=== PATIENT | female | born 1965 | race Caucasian/White ===

== ENCOUNTER 2018-12-14 19:12 | Inpatient (IN) ==
--- OUTSIDE RECORDS SUMMARY | 2018-12-14 19:15 | External Medical Summary | Continuity of Care Document ---
:1965 Author Name Mario Momin, Provider Address Unavailable Unavailable , Care Team Providers Name Role Phone NonMNPG Merrill, Provider Unavailable [email or web address] Unavailable Unavailable Unavailable Unavailable Unavailable Problems Uterine enlargement (621.2) (N85.2) Checking of intrauterine device (V25.42) (Z30.431) Encounter for routine gynecological examination (V72.31) (Z0 1.419) Acute cholecystitis (575.0) (K81.0) Obesity (278.00) (E66.9) Dysmenorrhea (625.3) (N94.6) Depression (311) (F32.9) Allergies and Adverse Reactions No Known Drug Allergies (Allergy) Medications metFORMIN HCl TABS Refills: 0 CeleXA TABS Refills: 0 Synthroid TABS Refills: 0 Procedures History of Neuroplasty Decompression Median Status: Completed Nerve At Carpal Tunnel History of Laparoscopic Cholecystectomy With Status: Completed 23-Jan-2015 0:00 Cholangiography Checking of intrauterine device Immunizations Immunizations not documented Family History Father Family history of Renal Failure Status: Active Sister Family history of Breast Cancer Status: Active Unknown Family Member Family history of Breast Cancer Status: Active Comments : Family History Social History - Smoking Status Unknown if ever smoked Plan of Treatment Planned Observations Planned Goals not documented Results No Known Results Results not documented Encounters Appointment; Jenniffer Mendosa M.D. 14-May-2017 13:00 Encounter Diagnosis: Problem not documented
[2018-12-14] MEDS ORDERED: SODIUM CHLORIDE 0.9% 1000ML 1,000 ML IV ONE (19:35)
[2018-12-14] MEDS ORDERED: MoRPHine SULFATE 4 MG/ML 1 ML CARP\\VIAL IV STA ×2 (19:35→21:05)
[2018-12-14] MEDS ORDERED: ONDANSETRON INJ 2 MG/ML 2 ML VIAL IV STA (19:35)
[2018-12-14 19:46] LABS: Mean Corpuscular Hgb Conc 35.5 g/dL (32-36); Mean Corpuscular Volume 90.1 fL (80-100); Mean Platelet Volume 9.7 fL (7.4-10.4); Platelet Count 186 K/uL (130-400); RDW Coefficient of Variation 16.5 % (11.5-14.5); RDW Standard Deviation 53.1 fL (36.4-46.3); Red Blood Count 3.44 M/uL (4.2-5.4); White Blood Count 6.93 K/uL (4.8-10.8)
--- NOTE | 2018-12-14 19:51 | XRay Report ---
SINGLE VIEW CHEST CLINICAL HISTORY: Atypical chest pain. Dyspnea. FINDINGS: An AP, portable, upright chest radiograph is compared to study dated 01/22/2015. Patchy degr aded The cardiomediastinal silhouette is unremarkable. There is bibasilar atelectasis. No airspace co nsolidation or large pleural effusion is identified. Calcified granulomas are seen in the right upper lobe. No pneumothorax is seen. The bony thorax is grossly intact. IMPRESSION: No active disease in the chest. Electronically signed by: Carl Whitten M.D. 12/14/2018 7:50 PM
[2018-12-14 20:02] LABS: BUN Creatinine Ratio 9.9 (10-20); Calcium 9.5 mg/dl (8.5-10.1); Creatinine Clr Calc Pharmacy 53.4 ml/min; Est GFR (African American) 52.3; Est GFR (Non-African American) 45.1; Potassium 4.1 mmol/L (3.5-5.1)
[2018-12-14 20:05] LABS: Appearance Urine Clear (Clear); Bilirubin Urine Negative (Negative); Bilirubin,Total 0.7 mg/dl (0.2-1); Blood Urine Negative (Negative); Color Urine Yellow; Glucose Urine UA Negative (Negative); Ketones Urine Negative (Negative); Leukocyte Esterase Urine Negative (Negative); Nitrite Urine Negative (Negative); Protein Urine Negative (Negative); Specific Gravity Urine 1.017 (1.000-1.030); Urobilinogen Urine Negative (Negative); pH Urine 5.5 (4.5-7.5)
[2018-12-14 20:12] LABS: ALC (manual) 2.89 K/uL (1.2-3.4); Eosinophils # (manual) 0.12 K/uL (0-0.5); Eosinophils % (manual) 1.7 %; Lymphocytes # (manual) 1.68 K/uL (1.2-3.4); Lymphocytes % (manual) 24.3 %; Monocytes # (manual) 0.24 K/uL (0.11-0.59); Monocytes % (manual) 3.5 %; Neutrophils % (manual) 53.1 %; Ovalocytes 1+; Reactive Lymphocytes # (manual) 1.21 K/uL
--- NOTE | 2018-12-14 20:32 | CT Scan Report ---
CT SCAN OF THE ABDOMEN AND PELVIS WITHOUT IV CONTRAST CLINICAL HISTORY: Left-sided abdominal pain. COMPARISON STUDY: Abdominal CT dated 10/27/2017. TECHNIQUE: CT scan of the abdomen and pelvis is performed from the lung bases to the proximal femora. Images are reviewed in the axial, sagittal, and coronal planes. IV contrast was not administered for this examination. Note that the examination was performed in suboptimal fashion without oral and IV contrast. A dose lowering technique was utilized adhering to the principles of ALARA. CT DOSE: 981.71 mGy.cm FINDINGS: Lung bases: The heart is normal in size and without pericardial effusion. A calcified granuloma seen at the medial right lung base. The lung bases are otherwise clear noting dependent atelectasis. Liver: The unenhanced liver is markedly enlarged measuring 27 cm in length. The liver demonstrates di ffusely diminished attenuation consistent with severe hepatic steatosis. There is no intrahepatic sravani iary ductal dilatation. Gallbladder: Surgically absent noting clips in the gallbladder fossa. Spleen: The spleen is markedly enlarged measuring 19.5 cm in length. There is a 3.1 cm subcapsular fo cus in the inferior spleen (axial image #146) with trace perisplenic fluid is level. This may represe nt a small splenic infarct. Pancreas: The unenhanced pancreas is grossly unremarkable. Adrenal glands: Unremarkable. Kidneys: The unenhanced kidneys are normal in size and without hydronephrosis. A 2.2 cm calcification is again seen within the left kidney. No right renal calculi are identified. There is no evidence of contour deforming renal mass lesion. Abdominal vasculature: The abdominal aorta is normal in course and caliber. Bowel: There is no bowel obstruction. The appendix is well-visualized and normal. Peritoneum: There is no intraperitoneal free air or abdominal ascites. There is a fat-containing umbi lical hernia. Lymphadenopathy: None. Pelvic viscera: The bladder is partially decompressed and grossly unremarkable. The uterus is normal as imaged noting an intrauterine device in place. The left ovary is enlarged measuring 5.3 cm in jane th and contains several internal cystic foci. Skeletal structures: No lytic or blastic lesions are seen. Mild sclerotic change is noted in the sacr oiliac joints. IMPRESSION: 1. The spleen is markedly enlarged measuring up to 19.5 cm in length. This has significantly increase d in size from 10/27/2017. Consider nonemergent hematology/oncology follow-up. 2. There is a 3.1 cm wedge-shaped focus of subcapsular low-attenuation within the inferior spleen. Th ere is trace perisplenic fluid at this level and this likely represents a small splenic infarct. 3. Marked hepatomegaly and severe hepatic steatosis. 4. A 2.2 cm calcification is again seen in the left kidney. 5. The left ovary is abnormally enlarged with several small cystic foci. Nonemergent gynecology follo w-up as well as nonemergent pelvic ultrasound are recommended for further assessment. 6. Additional findings as above. Electronically signed by: Carl Whitten M.D. 12/14/2018 8:31 PM
--- NOTE | 2018-12-14 22:47 | History & Physical Report ---
Date of Service December 14, 2018 Assessment & Plan (1) Left sided abdominal pain: 53-year-old female was admitted on 14 December 2018 for left flank pain and splenomegaly. Left flank pain, splenomegaly, lung granulomas on CXR: Worsening perhaps over two months. Denies known history of similar symptoms. No obvious evidence of ongoing infectious issue (with questionable recent CAP). No known cardiac anatomic disease. No recent reported trauma. May have some underlying liver disease. - In ED, afebrile, not tachycardic, relatively normal BP, normal room SpO2. WBC 7. POC lactate 2.8. UA negative. [place] screen negative. pCXR without active disease but positive calcified granulomas present. EKG is NSR 79. CT a/p non- con noted splenomegaly with increased size since October 2017. Concern for a small splenic infarct as well. - In ED, treated with morphine, normal saline, and Zofran. - For overnight, ordered a limited ultrasound for further evaluation of her spleen to include Dopplers of her splenic artery and vein. Will check an INR, CBC, CMP, lipase, and repeat lactate in the morning. - Consider further lab workup to include COMPA-I level for sarcoidosis, HAYES causes, hypercoagulability causes, and possible GI and/or heme onc consultation. Transaminitis, elevated lipase: Admit AST 91, ALT 106, alk phos 127, lipase 400. CT a/p notes marked hepatomegaly and severe hepatic steatosis. May all be HAYES-related given her comorbidities, though it is unclear if this is ever been evaluated before. Anemia: Admit hemoglobin 11.0. Only comparison is October 2017 at 12.8. May be related to splenic sequestration. No present obvious evidence of bleeding. Elevated creatinine: Admit creatinine 1.34. BUN 13. - Will provide some IVF and recheck in a.m. Temporarily hold her anti-HTN meds. Incidental CT a/p findings: - Left kidney 2.2 cm calcification. - Left ovary enlargement with several small cystic foci. --- Would benefit from gynecology follow-up. Ongoing medical issues: - Hypertension: Held her home triamterenehydrochlorothiazide and lisinopril for elevated creatinine. - Diabetes: Admit glucose 245. Unknown recent A1c. At home is on metformin and atorvastatin. --- Ordered HbA1c. Will keep on insulin sliding scale. Continue atorvastatin. - Hypothyroidism: Continue home levothyroxine. - Anxiety/depression: Continue home citalopram. Code status: Full code. Diet: DM2. DVT prophy: Heparin. PT/OT: Deferred. Disbo: Admit to MedSurg. (2) Splenomegaly: (3) Lung granuloma: (4) Transaminitis: (5) Elevated lipase: (6) Anemia: (7) Elevated serum creatinine: (8) Kidney calculus: (9) Left ovarian cyst: (10) Hypertension: (11) Diabetes: (12) Hypothyroidism: (13) Anxiety: (14) Depression: History of Present Illness Primary Care Provider: Gregory Sargent 53-year-old female states that she has had left upper quadrant regional pain for about two months now. No known acute injury, infection, or particular source around that time. She denies any previous history of the same. She says over this time it is been progressively worsening such that it feels like there is a "hard ball in there". She ended up going to an urgent care about a week ago, apparently was diagnosed with pneumonia, and was placed on azithromycin [of note, the ED records states that she was given Keflex. On further discussion, it seems much more likely it was a azithromycin based on the dosing she was taking]. She does note that she has had during that time a bit of a dry cough but no known fevers. She has noted occasional nausea without any vomiting. She did develop some loose non-bloody stools after starting the antibiotic, something she says happens to her frequently. She also notes increased fatigue during the past couple of weeks. At present, she denies any chest pain, shortness of breath, abdominal pain outside of a focal area in her high left upper quadrant, focal weakness, or other acute concerns. - Past medical history includes hypertension, diabetes, hypothyroidism, anxiety, depression. - Past surgical history includes cholecystectomy and carpal tunnel release. - Social history includes denying tobacco and alcohol use. Lives at home with family. Lives in an [facility]. Allergies Allergy/AdvReac Type Severity Reaction Status Date / Time No Known Allergies Allergy Verified 12/14/18 21:32 Home Medications Home Medications Medication Instructions Recorded Confirmed Type atorvastatin 10 mg PO DAILY 12/14/18 12/14/18 History cephalexin 500 mg PO QID 12/14/18 12/14/18 History citalopram 40 mg PO DAILY 12/14/18 12/14/18 History levothyroxine 112 mcg PO QAM 12/14/18 12/14/18 History lisinopril 5 mg PO DAILY 12/14/18 12/14/18 History metformin 1,000 mg PO QAM 12/14/18 12/14/18 History triamterene-hydrochlorothiazid 1 tab PO DAILY 12/14/18 12/14/18 History Past Med/Surg History Surgical History History of cholecystectomy Social History Preferred Language: Cymraes Communication Ability: Effective Senior Instructional Designer Required: No Beliefs That Will Affect Care: None Current Living Situation: Spouse and Family Other Information That Helps Us Care for You: No Feels Safe at Home: Yes Safety Concerns: Feels Safe At This Time Smoking Status: Never smoker Do You Dip or Chew Tobacco: No ; Second Hand Expos ure: No ; Tobacco Cessation Education Requested by Patient: No Hx Alcohol Use: Yes Alcohol type: wine Hx Substance Use: No Review of Systems Review of Systems: Constitutional: Denies fevers and focal weakness. Positive occasional chills and generalized fatigue. Eyes: Denies any visual loss or diplopia ENT: Denies any ear/nose/throat pain or difficulty speaking or swallowing Respiratory: Positive cough. Denies dyspnea. Cardiovascular: Denies any chest pain or feeling of edema Gastrointestinal: Positive focal left upper quadrant abdominal pain. Occasional nausea, denies vomiting, positive loose stools. Musculoskeletal: Denies any acute extremity pains, myalgias, or focal weakness Skin: Denies any known acute rashes or lesions Neuro: Denies any headache, acute focal weakness or numbness, or difficulties with speech or swallow. Hematologic: Denies any easy bleeding or bruising Physical Exam Physical Exam: GENERAL: Awake, alert, well-appearing, in no acute distress HENT: Normocephalic, atraumatic. Oropharynx unremarkable. EYES: Normal conjunctiva. Sclera non-icteric. NECK: Inspection normal. Supple and full ROM. No nuchal rigidity. CARDIAC: +S1S2 RRR, no murmurs. RESPIRATORY: Clear to auscultation. No wheezes or rales. Normal respiratory e ffort. GI: +BS, soft, non-distended. Positive focal tenderness to palpation in the high lateral left upper quadrant extending to around the axillary line. No rebound or guarding throughout the remainder of the abdomen. EXTREMITIES: No pedal edema or calf tenderness. Moving all extremities naturally and easily. There are some brown oval macules on the arms and chest. NEURO: No gross neuro deficits. Results & Data Vital Signs (Past 12 Hours) Vital Signs Temp Pulse Pulse Resp BP BP Pulse Ox 12/14/18 20:49 75 16 133/71 97 12/14/18 19:23 37.0 C 98 H 24 119/71 99 Laboratory Results 12/14/18 12/14/18 12/14/18 Range/Units 20:00 19:34 19:34 WBC (4.8-10.8) K/uL RBC (4.2-5.4) M/uL Hgb (12.0-16.0) g/dL Hct (37-47) % MCV (80-100) fL MCH (25-34) pg MCHC (32-36) g/dL RDW Std Deviation (36.4-46.3) fL RDW Coeff of Imelda (11.5-14.5) % Plt Count (130-400) K/uL MPV (7.4-10.4) fL Neutrophils % (Manual) % Lymphocytes % (Manual) % Reactive Lymphs % (Man) % Monocytes % (Manual) % Eosinophils % (Manual) % Neutrophils # (Manual) (1.4-6.5) K/uL Total Absolute Neuts (1.4-6.5) K/uL Lymphocytes # (Manual) (1.2-3.4) K/uL Reactive Lymphs # K/uL Total Abs Lymphocytes (1.2-3.4) K/uL Monocytes # (Manual) (0.11-0.59) K/uL Eosinophils # (Manual) (0-0.5) K/uL Ovalocytes Sodium (136-145) mmol/L Potassium (3.5-5.1) mmol/L Chloride (98-107) mmol/L Carbon Dioxide (21-32) mmol/L Anion Gap (3-11) BUN (7-18) mg/dl Creatinine (0.6-1.2) mg/dl Est Cr Clr Drug Dosing ml/min Est GFR ( Amer) Est GFR (Non-Af Amer) BUN/Creatinine Ratio (10-20) Glucose (70-99) mg/dl POC Lactic Acid Mike 2.79 H (0.90-1.70) mmol/L Calcium (8.5-10.1) mg/dl Total Bilirubin (0.2-1) mg/dl AST (15-37) U/L ALT (12-78) U/L Alkaline Phosphatase (45-117) U/L Total Protein (6.4-8.2) gm/dl Albumin (3.4-5.0) gm/dl Globulin (2.5-4.0) gm/dl Albumin/Globulin Ratio (0.9-2) Lipase (73-393) U/L Urine Color Yellow Urine Appearance Clear (Clear) Urine pH 5.5 (4.5-7.5) Ur Specific [place] 1.017 (1.000-1.030) Urine Protein Negative (Negative) Urine Glucose (UA) Negative (Negative) Urine Ketones Negative (Negative) Urine Blood Negative (Negative) Urine Nitrite Negative (Negative) Urine Bilirubin Negative (Negative) Urine Urobilinogen Negative (Negative) Ur Leukocyte Esterase Negative (Negative) Monoscreen Negative (Negative) 12/14/18 12/14/18 Range/Units 19:34 19:34 WBC 6.93 (4.8-10.8) K/uL RBC 3.44 L (4.2-5.4) M/uL Hgb 11.0 L (12.0-16.0) g/dL Hct 31.0 L (37-47) % MCV 90.1 (80-100) fL MCH 32.0 (25-34) pg MCHC 35.5 (32-36) g/dL RDW Std Deviation 53.1 H (36.4-46.3) fL RDW Coeff of Imelda 16.5 H (11.5-14.5) % Plt Count 186 (130-400) K/uL MPV 9.7 (7.4-10.4) fL Neutrophils % (Manual) 53.1 % Lymphocytes % (Manual) 24.3 % Reactive Lymphs % (Man) 17.4 % Monocytes % (Manual) 3.5 % Eosinophils % (Manual) 1.7 % Neutrophils # (Manual) 3.68 (1.4-6.5) K/uL Total Absolute Neuts 3.68 (1.4-6.5) K/uL Lymphocytes # (Manual) 1.68 (1.2-3.4) K/uL Reactive Lymphs # 1.21 K/uL Total Abs Lymphocytes 2.89 (1.2-3.4) K/uL Monocytes # (Manual) 0.24 (0.11-0.59) K/uL Eosinophils # (Manual) 0.12 (0-0.5) K/uL Ovalocytes 1+ Sodium 134 L (136-145) mmol/L Potassium 4.1 (3.5-5.1) mmol/L Chloride 99 (98-107) mmol/L Carbon Dioxide 24 (21-32) mmol/L Anion Gap 10.0 (3-11) BUN 13 (7-18) mg/dl Creatinine 1.34 H (0.6-1.2) mg/dl Est Cr Clr Drug Dosing 53.4 ml/min Est GFR ( Amer) 52.3 Est GFR (Non-Af Amer) 45.1 BUN/Creatinine Ratio 9.9 L (10-20) Glucose 245 H (70-99) mg/dl POC Lactic Acid Mike (0.90-1.70) mmol/L Calcium 9.5 (8.5-10.1) mg/dl Total Bilirubin 0.7 (0.2-1) mg/dl AST 91 H (15-37) U/L ALT 106 H (12-78) U/L Alkaline Phosphatase 127 H (45-117) U/L Total Protein 8.0 (6.4-8.2) gm/dl Albumin 4.0 (3.4-5.0) gm/dl Globulin 4.0 (2.5-4.0) gm/dl Albumin/Globulin Ratio 1.0 (0.9-2) Lipase 400 H (73-393) U/L Urine Color Urine Appearance (Clear) Urine pH (4.5-7.5) Ur Specific [place] (1.000-1.030) Urine Protein (Negative) Urine Glucose (UA) (Negative) Urine Ketones (Negative) Urine Blood (Negative) Urine Nitrite (Negative) Urine Bilirubin (Negative) Urine Urobilinogen (Negative) Ur Leukocyte Esterase (Negative) Monoscreen (Negative) Medications Administered Discontinued Medications Sodium Chloride (Nss 1000ml) 1,000 mls @ 999 mls/hr IV .Q1H1M ONE Stop: 12/14/18 20:35 Last Infusion: 12/14/18 20:46 Dose: 0 mls/hr Documented by: [id number] Admin: 12/14/18 19:43 Dose: 999 mls/hr Documented by: [id number] Morphine Sulfate (Morphine Sulfate) 4 mg IV NOW STA Stop: 12/14/18 19:36 Last Admin: 12/14/18 19:43 Dose: 4 mg Documented by: [id number] Morphine Sulfate (Morphine Sulfate) 4 mg IV NOW STA Stop: 12/14/18 21:06 Last Admin: 12/14/18 21:09 Dose: 4 mg Documented by: [id number] Ondansetron HCl (Zofran) 4 mg IV NOW STA Stop: 12/14/18 19:36 Last Admin: 12/14/18 19:43 Dose: 4 mg Documented by: [id number] Code Status & VTE Plan Code Status Full code VTE Prophylaxis Plan VTE Prophylaxis will be ordered: Yes Supervising Physician Co-Signing Physician Notes Patient seen and examined, chart reviewed, case discussed with Dr. Li and I agree with his assessment and plan as documented above. Briefly, patient is a 53yo C female with history of DM, HTN, Hypothyroidism presenting with left sided abdominal pain. Patient found to have splenomegaly on CT On exam she is afebrile, hemodynamically stable Mild distress secondary to abdominal discomfort HEENT - anicteric, no jaundice, MMM, neck supple, PERRL Heart - +S2/S2, regular, no m/r/g Lungs - CTA Abd - +BS, soft, tender in LUQ, palpable spleen tip, tender Ext - No edema Neuro - grossly nonfocal Labs and images reviewed. Significant for normochromic/normocytic anemia with Hg of 11, Hct of 31, Ty=133, Cr=1.34, Ede=321, POC lactate = 2.79, mildly elevated AST/ALT and AP. Normal Bili. Mxmvvs=702. UA negative. [place] negative. CXR with calcified granulomas in RUL otherwise unremarkable CT of the abdomen with markedly enlarged spleen, possible splenic infarct, hepatomegaly with severe hepatic steatosis, calcification in left kidney, enlar ged left ovary with several small cystic foci Assessment/Plan: 53yo C female with HTN/DM/Hypothyroidism presenting with severe LUQ pain. Patient found to have hepatosplenomegaly. Other findings in clude lung granuloma and cystic left ovary. Ddx of hepatosplenomegaly is broad - infectious etiology such as histoplasmosis, malignancy, infiltrative such as sarcoidosis, blood dyscrasias, congestive. Patient does not endorse fevers/chills/sweats or weight loss. -Will admit to medical floor. -Pain control and anti-emetics as needed -Check splenic US with doppler to assess blood flow -Check INR -Will check peripheral smear and CA125, consider additional workup to include COMPA level Heme/Onc evaluation -Remainder of plan as above PG Care Time/CCT Total # of Minutes Spent Total Time Spent with Patient: Total time spent is greater than 50% in coordination of care (as documented) at patient's floor/unit and/or counseling patient: Resident Activity Tracking Resident Involvement: Resident Care Provided Care Provided: Adult Hospital Medicine
--- NOTE | 2018-12-14 23:00 | Ultrasound Report ---
ULTRASOUND LEFT UPPER QUADRANT ABDOMEN CLINICAL HISTORY: Splenomegaly. COMPARISON STUDY: Abdominal CT dated 12/14/2018. FINDINGS: Real-time, grayscale, and color Doppler sonography of the left upper quadrant is performed. Images are viewed the transverse and longitudinal planes. FINDINGS: Spleen: The spleen is markedly enlarged, measuring 18.6 cm in length. The splenic vessels at the sple jimenez hilum appear patent. Trace perisplenic fluid is noted. The small splenic infarct seen by CT was n ot apparent by ultrasound. Left kidney: The left kidney is normal in size and homogeneous in echotexture. There is no evidence o f hydronephrosis. A 2.2 cm shadowing calculus is identified in the interpolar region. IMPRESSION: 1. The spleen is markedly enlarged and there is trace perisplenic fluid. The small splenic infarct se en by CT is not visualized by ultrasound. 2. A large shadowing calculus is again seen in the left kidney. Electronically signed by: Carl Whitten M.D. 12/14/2018 10:59 PM
[2018-12-15] MEDS ORDERED: CARBOHYDRATES FOR HYPOGLYCEMIA PO PRN (00:15)
[2018-12-15] MEDS ORDERED: GLUCAGON FOR INJ 1 MG VIAL SQ PRN (00:15)
[2018-12-15] MEDS ORDERED: GLUCOSE 10 TABS/TUBE PO PRN (00:15)
[2018-12-15] MEDS ORDERED: ONDANSETRON INJ 2 MG/ML 2 ML VIAL IV PRN (00:15)
[2018-12-15] MEDS ORDERED: GLUCOSE 40% GEL 15 GM TUBE PO PRN (00:15)
[2018-12-15] MEDS ORDERED: DEXTROSE 50% 50 ML SYRINGE IV PRN (00:15)
[2018-12-15] MEDS ORDERED: MoRPHine SULFATE 4 MG/ML 1 ML CARP\\VIAL IV PRN (00:15)
[2018-12-15] MEDS ORDERED: MoRPHine SULFATE 4 MG/ML 1 ML CARP\\VIAL ONE (00:26)
[2018-12-15] MEDS: LACTATED RINGER'S 1,000 ML IV SCH ×2 (01:32→13:37)
[2018-12-15] MEDS: MoRPHine SULFATE 4 MG/ML 1 ML CARP\\VIAL IV PRN ×6 (03:49→21:59)
[2018-12-15] MEDS: INSULIN ASPART 100 UNITS/ML 3 ML PEN SC SCH ×5 (04:19→20:58)
--- NOTE | 2018-12-15 04:36 | Emergency Department Note ---
Entered by Ronald Mendosa acting as a scribe for History of Present Illness General Chief complaint: Flank Pain Stated complaint: LEFT SIDE PAIN Time Seen by Provider: 12/14/18 19:26 Source: patient Limitations: no limitations History of Present Illness Onset (ago): week(s) 2 Location: left (left-sided abdominal pain) Pain Consistency: + other (worsening) Maximum Pain Intensity: 10 Quality: + constant and + other (pressure) Associated symptoms: + nausea/vomiting (no vomiting); no fever/chills Treatments prior to arrival: other (cephalexin) The patient is a 53 year old female who presents to the Emergency Room with complaints of constant and worsening left-sided flank pain starting 3 weeks ago. The patient states she has not felt good for 2 weeks. The patient's states the patient was in urgent care last week and was diagnosed with pneumonia. The states she was put on cephalexin and the patient has been taking it for the past week. The patient states she has been having diarrhea since starting the antibiotic. The patient states the flank pain feels like pressure. She notes she has been coughing but has not been bringing up any spu suha. She notes coughing causes her back to hurt. She states her flank pain has been much worse today. She notes she is SOB right now and has nausea. She states she feels more bloated. She denies fevers, chills, vomiting, and changes in her urine. She notes she had a cholecystectomy. No prior hx of GI problems. No hx of kidney stones. Home Medications Home Medications Medication Instructions Recorded Confirmed Type atorvastatin 10 mg PO DAILY 12/14/18 12/14/18 History cephalexin 500 mg PO QID 12/14/18 12/14/18 History citalopram 40 mg PO DAILY 12/14/18 12/14/18 History levothyroxine 112 mcg PO QAM 12/14/18 12/14/18 History lisinopril 5 mg PO DAILY 12/14/18 12/14/18 History metformin 1,000 mg PO QAM 12/14/18 12/14/18 History triamterene-hydrochlorothiazid 1 tab PO DAILY 12/14/18 12/14/18 History Allergies Allergy/AdvReac Type Severity Reaction Status Date / Time No Known Allergies Allergy Verified 12/14/18 21:32 Past Med/Surg History Surgical History History of cholecystectomy Social History Preferred Language: Mongolian Communication Ability: Effective [employer] Required: No Beliefs That Will Affect Care: None Current Living Situation: Spouse and Family Other Information That Helps Us Care for You: No Feels Safe at Home: Yes Safety Concerns: Feels Safe At This Time Smoking Status: Never smoker Do You Dip or Chew Tobacco: No ; Second Hand Exposure: No ; Tobacco Cessation Education Requested by Patient: No Hx Alcohol Use: Yes Alcohol type: wine Hx Substance Use: No Review of Systems See HPI for pertinent positives & negatives. and A total of 10 systems reviewed and were otherwise negative Physical Exam Vital Signs Vital Signs - 24 hr 12/14/18 19:23 12/14/18 20:49 Temperature 37.0 C Temperature Source Oral Sepsis Recent Fever Within 48 Hours No Sepsis New/Unexplained Change in Mental Status No Sepsis Action Taken by Nursing No Action Required Pulse Rate 98 H Pulse Rate [Right] 75 Pulse Rhythm [Right] Regular Pulse Strength [Right] Normal Respiratory Rate 24 16 Respiratory Effort / Characteristics Non-Labored Spontaneous Respiratory Depth Normal Blood Pressure 119/71 Blood Pressure [Right Arm] 133/71 Blood Pressure Mean 87 Blood Pressure Mean [Right Arm] 91 Blood Pressure Position [Right Arm] Lying Pulse Oximetry 99 97 Oxygen Delivery Method Room Air GENERAL: alert, uncomfortable appearing, well nourished, moderate distress, non- toxic EYE EXAM: normal conjunctiva, PERRL and EOM's grossly intact OROPHARYNX: no exudate, no erythema, lips, buccal mucosa, and tongue normal and mucous membranes are dry NECK: supple, no nuchal rigidity, no adenopathy, non-tender LUNGS: Clear to auscultation. Normal chest wall mechanics, no w/r/r HEART: no murmurs, S1 normal and S2 normal ABDOMEN: abdomen soft, normo-active bowel sounds, no masses, no rebound or guarding. LUQ tenderness. Left mid abdominal tenderness. BACK: Back is symmetrical on inspection and there is no deformity, no midline tenderness, no CVA tenderness. SKIN: no rashes and no bruising UPPER EXTREMITIES: upper extremities are grossly normal. FROM, nml pulses b/l. LOWER EXTREMITIES: No pitting edema. FROM, nml pulses b/l. NEURO EXAM: Normal sensorium, cranial nerves II-XII grossly intact, normal speech, no gross weakness of arms, no gross weakness of legs. Course 1929: The patient was evaluated in room C11B, and a complete history and physical examination were performed. 2049: I reevaluated the patient. She states she still has pain and is willing to stay. 2102: I discussed the patient's case with [facility] She will evaluate the patient for further management. Administered Medications Lactated Ringer's (Lr) 1,000 mls @ 80 mls/hr IV .[id number] JADON Stop: 01/14/19 00:14 Last Admin: 12/15/18 01:32 Dose: 80 mls/hr Documented by: [id number] Insulin Aspart (Novolog Flexpen) 0 units SC ACHS JADON Stop: 01/14/19 02:59 Last Admin: 12/15/18 04:19 Dose: 3 units Documented by: [id number] Cosigned by: [id number] Morphine Sulfate (Morphine Sulfate) 4 mg IV Q3H PRN PRN Reason: Pain Stop: 12/29/18 00:14 Last Admin: 12/15/18 03:49 Dose: 4 mg Documented by: [id number] Discontinued Medications Sodium Chloride (Nss 1000ml) 1,000 mls @ 999 mls/hr IV .Q1H1M ONE Stop: 12/14/18 20:35 Last Infusion: 12/14/18 20:46 Dose: 0 mls/hr Documented by: [id number] Admin: 12/14/18 19:43 Dose: 999 mls/hr Documented by: [id number] Morphine Sulfate (Morphine Sulfate) 4 mg IV NOW STA Stop: 12/14/18 19:36 Last Admin: 12/14/18 19:43 Dose: 4 mg Documented by: [id number] Morphine Sulfate (Morphine Sulfate) 4 mg IV NOW STA Stop: 12/14/18 21:06 Last Admin: 12/14/18 21:09 Dose: 4 mg Documented by: [id number] Morphine Sulfate (Morphine Sulfate) Confirm Administered Dose 4 mg .ROUTE .STK-MED ONE Stop: 12/15/18 00:27 Last Admin: 12/15/18 00:29 Dose: 4 mg Documented by: [id number] Ondansetron HCl (Zofran) 4 mg IV NOW STA Stop: 12/14/18 19:36 Last Admin: 12/14/18 19:43 Dose: 4 mg Documented by: [id number] Medical Decision Making Differential Diagnosis Differential diagnoses includes but is not limited to gastritis, peptic ulcer disease, GERD, gallbladder disease, pancreatitis, small bowel obstruction, acute coronary syndrome, pericarditis, ischemic bowel, irritable bowel disease, irritable bowel syndrome, appendicitis, diverticulitis, malignancy, hernia, urinary tract infection, torsion, perforation, trauma, infectious. Medical Records Attestation: I reviewed the patient's medical records. Home Medications Current Medication List: was personally reviewed by me Laboratory Data Attestation: I reviewed the patient's lab results. Result diagrams: 12/14/18 19:34 12/14/18 19:34 Lab Results 12/14/18 12/14/18 12/14/18 Range/Units 19:34 19:34 19:34 WBC 6.93 (4.8-10.8) K/uL RBC 3.44 L (4.2-5.4) M/uL Hgb 11.0 L (12.0-16.0) g/dL Hct 31.0 L (37-47) % MCV 90.1 (80-100) fL MCH 32.0 (25-34) pg MCHC 35.5 (32-36) g/dL RDW Std Deviation 53.1 H (36.4-46.3) fL RDW Coeff of Imelda 16.5 H (11.5-14.5) % Plt Count 186 (130-400) K/uL MPV 9.7 (7.4-10.4) fL Neutrophils % (Manual) 53.1 % Lymphocytes % (Manual) 24.3 % Reactive Lymphs % (Man) 17.4 % Monocytes % (Manual) 3.5 % Eosinophils % (Manual) 1.7 % Neutrophils # (Manual) 3.68 (1.4-6.5) K/uL Total Absolute Neuts 3.68 (1.4-6.5) K/uL Lymphocytes # (Manual) 1.68 (1.2-3.4) K/uL Reactive Lymphs # 1.21 K/uL Total Abs Lymphocytes 2.89 (1.2-3.4) K/uL Monocytes # (Manual) 0.24 (0.11-0.59) K/uL Eosinophils # (Manual) 0.12 (0-0.5) K/uL Ovalocytes 1+ Sodium 134 L (136-145) mmol/L Potassium 4.1 (3.5-5.1) mmol/L Chloride 99 (98-107) mmol/L Carbon Dioxide 24 (21-32) mmol/L Anion Gap 10.0 (3-11) BUN 13 (7-18) mg/dl Creatinine 1.34 H (0.6-1.2) mg/dl Est Cr Clr Drug Dosing 53.4 ml/min Est GFR ( Amer) 52.3 Est GFR (Non-Af Amer) 45.1 BUN/Creatinine Ratio 9.9 L (10-20) Glucose 245 H (70-99) mg/dl POC Lactic Acid Mike (0.90-1.70) mmol/L Calcium 9.5 (8.5-10.1) mg/dl Total Bilirubin 0.7 (0.2-1) mg/dl AST 91 H (15-37) U/L ALT 106 H (12-78) U/L Alkaline Phosphatase 127 H (45-117) U/L Total Protein 8.0 (6.4-8.2) gm/dl Albumin 4.0 (3.4-5.0) gm/dl Globulin 4.0 (2.5-4.0) gm/dl Albumin/Globulin Ratio 1.0 (0.9-2) Lipase 400 H (73-393) U/L Urine Color Yellow Urine Appearance Clear (Clear) Urine pH 5.5 (4.5-7.5) Ur Specific Clarence 1.017 (1.000-1.030) Urine Protein Negative (Negative) Urine Glucose (UA) Negative (Negative) Urine Ketones Negative (Negative) Urine Blood Negative (Negative) Urine Nitrite Negative (Negative) Urine Bilirubin Negative (Negative) Urine Urobilinogen Negative (Negative) Ur Leukocyte Esterase Negative (Negative) Monoscreen (Negative) 12/14/18 12/14/18 Range/Units 19:34 20:00 WBC (4.8-10.8) K/uL RBC (4.2-5.4) M/uL Hgb (12.0-16.0) g/dL Hct (37-47) % MCV (80-100) fL MCH (25-34) pg MCHC (32-36) g/dL RDW Std Deviation (36.4-46.3) fL RDW Coeff of Imelda (11.5-14.5) % Plt Count (130-400) K/uL MPV (7.4-10.4) fL Neutrophils % (Manual) % Lymphocytes % (Manual) % Reactive Lymphs % (Man) % Monocytes % (Manual) % Eosinophils % (Manual) % Neutrophils # (Manual) (1.4-6.5) K/uL Total Absolute Neuts (1.4-6.5) K/uL Lymphocytes # (Manual) (1.2-3.4) K/uL Reactive Lymphs # K/uL Total Abs Lymphocytes (1.2-3.4) K/uL Monocytes # (Manual) (0.11-0.59) K/uL Eosinophils # (Manual) (0-0.5) K/uL Ovalocytes Sodium (136-145) mmol/L Potassium (3.5-5.1) mmol/L Chloride (98-107) mmol/L Carbon Dioxide (21-32) mmol/L Anion Gap (3-11) BUN (7-18) mg/dl Creatinine (0.6-1.2) mg/dl Est Cr Clr Drug Dosing ml/min Est GFR ( Amer) Est GFR (Non-Af Amer) BUN/Creatinine Ratio (10-20) Glucose (70-99) mg/dl POC Lactic Acid Mike 2.79 H (0.90-1.70) mmol/L Calcium (8.5-10.1) mg/dl Total Bilirubin (0.2-1) mg/dl AST (15-37) U/L ALT (12-78) U/L Alkaline Phosphatase (45-117) U/L Total Protein (6.4-8.2) gm/dl Albumin (3.4-5.0) gm/dl Globulin (2.5-4.0) gm/dl Albumin/Globulin Ratio (0.9-2) Lipase (73-393) U/L Urine Color Urine Appearance (Clear) Urine pH (4.5-7.5) Ur Specific Clarence (1.000-1.030) Urine Protein (Negative) Urine Glucose (UA) (Negative) Urine Ketones (Negative) Urine Blood (Negative) Urine Nitrite (Negative) Urine Bilirubin (Negative) Urine Urobilinogen (Negative) Ur Leukocyte Esterase (Negative) Monoscreen Negative (Negative) Imaging Data Radiologist's Impression: Radiology results as stated below per my review and the radiologist's interpretation: SINGLE VIEW CHEST CLINICAL HISTORY: Atypical chest pain. Dyspnea. FINDINGS: An AP, portable, upright chest radiograph is compared to study dated 01/22/2015. Patchy degraded The cardiomediastinal silhouette is unremarkable. There is bibasilar atelectasis. No airspace consolidation or large pleural effusion is identified. Calcified granulomas are seen in the right upper lobe. No pneumothorax is seen. The bony thorax is grossly intact. IMPRESSION: No active disease in the chest. Electronically signed by: Carl Whitten M.D. 12/14/2018 7:[address] SCAN OF THE ABDOMEN AND PELVIS WITHOUT IV CONTRAST CLINICAL HISTORY: Left-sided abdominal pain. COMPARISON STUDY: Abdominal CT dated 10/27/2017. TECHNIQUE: CT scan of the abdomen and pelvis is performed from the lung bases to the proximal femora. Images are reviewed in the axial, sagittal, and coronal planes. IV contrast was not administered for this examination. Note that the examination was performed in suboptimal fashion without oral and IV contrast. A dose lowering technique was utilized adhering to the principles of ALARA. CT DOSE: 981.71 mGy.cm FINDINGS: Lung bases: The heart is normal in size and without pericardial effusion. A calcified granuloma seen at the medial right lung base. The lung bases are otherwise clear noting dependent atelectasis. Liver: The unenhanced liver is markedly enlarged measuring 27 cm in length. The liver demonstrates diffusely diminished attenuation consistent with severe hepatic steatosis. There is no intrahepatic biliary ductal dilatation. Gallbladder: Surgically absent noting clips in the gallbladder fossa. Spleen: The spleen is markedly enlarged measuring 19.5 cm in length. There is a 3.1 cm subcapsular focus in the inferior spleen (axial image #146) with trace perisplenic fluid is level. This may represent a small splenic infarct. Pancreas: The unenhanced pancreas is grossly unremarkable. Adrenal glands: Unremarkable. Kidneys: The unenhanced kidneys are normal in size and without hydronephrosis. A 2.2 cm calcification is again seen within the left kidney. No right renal calculi are identified. There is no evidence of contour deforming renal mass lesion. Abdominal vasculature: The abdominal aorta is normal in course and caliber. Bowel: There is no bowel obstruction. The appendix is well-visualized and normal. Peritoneum: There is no intraperitoneal free air or abdominal ascites. There is a fat-containing umbilical hernia. Lymphadenopathy: None. Pelvic viscera: The bladder is partially decompressed and grossly unremarkable. The uterus is normal as imaged noting an intrauterine device in place. The left ovary is enlarged measuring 5.3 cm in length and contains several internal cystic foci. Skeletal structures: No lytic or blastic lesions are seen. Mild sclerotic change is noted in the sacroiliac joints. IMPRESSION: 1. The spleen is markedly enlarged measuring up to 19.5 cm in length. This has significantly increased in size from 10/27/2017. Consider nonemergent hematology/oncology follow-up. 2. There is a 3.1 cm wedge-shaped focus of subcapsular low-attenuation within the inferior spleen. There is trace perisplenic fluid at this level and this likely represents a small splenic infarct. 3. Marked hepatomegaly and severe hepatic steatosis. 4. A 2.2 cm calcification is again seen in the left kidney. 5. The left ovary is abnormally enlarged with several small cystic foci. Nonemergent gynecology follow-up as well as nonemergent pelvic ultrasound are recommended for further assessment. 6. Additional findings as above. Electronically signed by: Carl Whitten M.D. 12/14/2018 8:31 PM ECG Data Attestation: I personally reviewed and interpreted this ECG as follows: Indication: abdominal pain Rate (beats per minute): 79 Rhythm: sinus rhythm Findings: + other (normal axis, normal intervals); no acute ischemic change and no ectopy Blood Pressure Blood Pressure Findings: Normal blood pressure Blood Pressure Disposition: further management by hospitalist MDM Narrative Pt here markedly uncomfortable appearing presentation initially most consistent with renal colic despite no hx. Labs sent, pt given IV meds for pain and n ausea. CT revealed markedly enlarged spleen and severe fatty liver. Likely liver related to DM and body habitus, however no clear etiology of splenomegaly which was likely causing her pain. Pain is improved with meds, but given persistence and concern for splenomegaly, case discussed with hospitalist for additional evaluation and mgmt. Pt is aware of all results and in agreement with the plan. VS stable here throughout. Impression & Plan Left sided abdominal pain, Splenomegaly, Hepatic steatosis, Abnormal LFTs Discharge Plan Visit Data *Final* Discharge Date/Time: 12/15/18 00:05 Chief Complaint: Flank Pain Stated Complaint: LEFT SIDE PAIN ED Provider: Kaylee Bhardwaj Discharge Problem: Left sided abdominal pain, Splenomegaly, Hepatic steatosis, Abnormal LFTs Patient Disposition: Admitted As Inpatient Discharge Instructions Interventions: ED Discharge Assessment Last Done: 12/15/18 00:05 The scribe's documentation has been prepared under my direction and personally reviewed by me in its entirety. I confirm that the note above accurately reflects all work, treatment, procedures, and medical decision making performed by me.
[2018-12-15] MEDS: LEVOTHYROXINE SODIUM 112 MCG TABLET PO SCH (05:34)
[2018-12-15] MEDS: CITALOPRAM 40 MG TAB PO SCH (08:04)
[2018-12-15] MEDS: ATORVASTATIN 10 MG TAB PO SCH (08:04)
[2018-12-15 08:26] LABS: Basophils # (auto) 0.04 K/uL (0-0.2); Basophils % (auto) 0.9 %; Eosinophils # (auto) 0.04 K/uL (0-0.5); Eosinophils % (auto) 0.9 %; Hematocrit (blood only) 28.1 % (37-47); Hemoglobin 9.7 g/dL (12.0-16.0); Immature Granulocytes # (auto) 0.01 K/uL (0.00-0.02); Immature Granulocytes % (auto) 0.2 %; Lymphocytes # (auto) 2.09 K/uL (1.2-3.4); Lymphocytes % (auto) 48.9 %; Mean Corpuscular Hgb Conc 34.5 g/dL (32-36); Mean Corpuscular Volume 92.1 fL (80-100); Mean Platelet Volume 10.5 fL (7.4-10.4); Monocytes % (auto) 9.4 %; Neutrophils # (auto) 1.69 K/uL (1.4-6.5); Neutrophils % (auto) 39.7 %; Platelet Count 132 K/uL (130-400); RDW Coefficient of Variation 17.2 % (11.5-14.5); RDW Standard Deviation 56.4 fL (36.4-46.3); Red Blood Count 3.05 M/uL (4.2-5.4); White Blood Count 4.27 K/uL (4.8-10.8)
[2018-12-15 08:38] LABS: Prothrombin Time 10.6 Seconds (9.0-12.0)
[2018-12-15 08:53] LABS: Albumin Level 3.3 gm/dl (3.4-5.0); BUN Creatinine Ratio 8.9 (10-20); Calcium 8.5 mg/dl (8.5-10.1); Est GFR (African American) 64.9; Estimated Average Glucose 206 mg/dl; Hemoglobin A1C 8.8 % (4.5-5.6); Potassium 3.6 mmol/L (3.5-5.1)
[2018-12-15 08:57] LABS: Bilirubin,Total 0.6 mg/dl (0.2-1); Globulin 3.4 gm/dl (2.5-4.0); Total Protein 6.7 gm/dl (6.4-8.2)
[2018-12-15] MEDS: HEPARIN SOD 5,000 UNIT/0.5 ML VIAL SQ SCH ×2 (10:06→20:58)
[2018-12-15] MEDS ORDERED: POLYETHYLENE (MIRALAX) 17 GM PACK PO PRN (15:57)
--- NOTE | 2018-12-15 16:01 | Hospitalist Progress Note ---
Date of Service December 15, 2018 Assessment & Plan (1) Left sided abdominal pain: - Likely related to splenomegaly noted on CT A/P (was 19.5 cm, significantly increased since October 2017). - Spleen US showed enlargement, trace perisplenic fluid but no evidence of infarct. - CBC is currently stable with exception of anemia and mild leukopenia; peripheral smear is pending. - Bandera test was negative; mononucleosis is unlikely etiology. - Consider sarcoidosis in setting of lung granulomas and cough -- COMPA level pending. May require biopsy of lung granulomas. - CA-125, CRP and ESR pending; Lipase level was WNL. - Consulting heme/onc, appreciate input. - Start bowel regimen to avoid abd pain induced by constipation. - Morphine 4 mg IV q3hr prn pain -- has been using med intermittently. (2) Splenomegaly: - As noted above. (3) Lung granuloma: - Concern for sarcoidosis in setting of cough, splenomegaly. Calcium level is WNL on labs. (4) Hepatic steatosis: - Noted on CT A/P with hepatomegaly. - Consider HAYES -- unclear if this has been evaluated before. - Consider GI consult as inpatient; may require liver biopsy in near future. (5) Abnormal LFTs: - Likely related to hepatic steatosis. - Continue statin with close monitoring of LFTs. (6) Left ovarian cyst: - Left ovary is abnormally enlarged with several small cysts. - Will need outpatient gyne follow up. (7) Hypertension: - Holding home Lisinopril & Triamterene/HCTZ due to elevated Cr at admission. - BP has been stable. (8) HLD (hyperlipidemia): - Continue statin -- hold if LFTs trend up. (9) Hypothyroidism: - Continue Synthroid 112 mcg daily as prescribed. - TSH in AM. (10) Depression: - Continue Celexa as prescribed. (11) Diabetes: - Hgb A1C was 8.8. - Holding home Metformin. - SSI coverage as inpt. (12) Anemia: - Likely dilutional related to IV fluids. - Monitor CBC qAM. (13) DVT prophylaxis: - Heparin q12hr. Dispo: Med/surg for evaluation of left abd pain. Supervising Physician Co-Signing Physician Notes Attending Attestation - Chart reviewed, care plan d/w ELIZABETH Buck. I agree w/ the ross components of her documentation. 53yo female with abdominal pain likely due to splenomegaly. Evidence of hepatomegaly, abnormal LFTs, ovarian cyst, and pulmonary granulomas. Agree w/ current work-up as suggested by Ms Buck. Agree w/ GI and heme/onc consultations. Lon Flores MD Subjective Pt. has left sided upper abdominal pain, has been requiring IV narcotics. She has SOB related to abd pain. Denies nausea/vomiting. Last BM was yesterday. Review of Systems Review of Systems: All systems reviewed & are unremarkable except as noted in HPI & below Constitutional: + anorexia; no fever, no chills, no fatigue and no weakness Respiratory: no cough, no dyspnea and no dyspnea on exertion Cardiovascular: no chest pain, no palpitations and no edema Gastrointestinal: + abdominal pain; no nausea, no vomiting and no constipation Genitourinary: no difficulty urinating Musculoskeletal: no back pain and no joint pain Integumentary: no non-healing lesions Physical Exam Physical Exam: General: Resting comfortably HEENT: NC/AT; PERRLA with EOMI; [place] conjunctiva, MMM. No erythema of posterior pharynx Neck: Supple and nontender Cardiac: RRR Lungs: CTA bilaterally Abdomen: Bowel normoactive X 4; TTP over LUQ, +splenomegaly. Extremities: Warm. No edema present Neuro: No focal weakness Skin: No rash Results & Data Vital Signs (Past 12 Hours) Vital Signs Temp Pulse Pulse Resp BP Pulse Ox 12/15/18 15:15 36.7 C 71 14 133/78 94 12/15/18 08:11 36.5 C 65 16 114/73 94 Laboratory Results 12/15/18 12/15/18 12/15/18 Range/Units 13:20 12:13 08:15 WBC (4.8-10.8) K/uL RBC (4.2-5.4) M/uL Hgb (12.0-16.0) g/dL Hct (37-47) % MCV (80-100) fL MCH (25-34) pg MCHC (32-36) g/dL RDW Std Deviation (36.4-46.3) fL RDW Coeff of Imelda (11.5-14.5) % Plt Count (130-400) K/uL MPV (7.4-10.4) fL Immature Gran % (Auto) % Neut % (Auto) % Lymph % (Auto) % Bandera % (Auto) % Eos % (Auto) % Baso % (Auto) % Immature Gran # (Auto) (0.00-0.02) K/uL Neut # (Auto) (1.4-6.5) K/uL Lymph # (Auto) (1.2-3.4) K/uL Bandera # (Auto) (0.11-0.59) K/uL Eos # (Auto) (0-0.5) K/uL Baso # (Auto) (0-0.2) K/uL Neutrophils % (Manual) % Lymphocytes % (Manual) % Reactive Lymphs % (Man) % Monocytes % (Manual) % Eosinophils % (Manual) % Neutrophils # (Manual) (1.4-6.5) K/uL Total Absolute Neuts (1.4-6.5) K/uL Lymphocytes # (Manual) (1.2-3.4) K/uL Reactive Lymphs # K/uL Total Abs Lymphocytes (1.2-3.4) K/uL Monocytes # (Manual) (0.11-0.59) K/uL Eosinophils # (Manual) (0-0.5) K/uL Ovalocytes Peripher Smr Path Cons ESR PT (9.0-12.0) Seconds INR (0.9-1.1) Sodium (136-145) mmol/L Potassium (3.5-5.1) mmol/L Chloride (98-107) mmol/L Carbon Dioxide (21-32) mmol/L Anion Gap (3-11) BUN (7-18) mg/dl Creatinine (0.6-1.2) mg/dl Est Cr Clr Drug Dosing ml/min Est GFR ( Amer) Est GFR (Non-Af Amer) BUN/Creatinine Ratio (10-20) Glucose (70-99) mg/dl POC Glucose 166 H 185 H (70-99) Estimat Average Glucose mg/dl Hemoglobin A1c (4.5-5.6) % POC Lactic Acid Mike (0.90-1.70) mmol/L Lactate (0.4-2.0) mmol/L Calcium (8.5-10.1) mg/dl Total Bilirubin (0.2-1) mg/dl AST (15-37) U/L ALT (12-78) U/L Alkaline Phosphatase (45-117) U/L C-Reactive Protein Total Protein (6.4-8.2) gm/dl Albumin (3.4-5.0) gm/dl Globulin (2.5-4.0) gm/dl Albumin/Globulin Ratio (0.9-2) Lipase (73-393) U/L Angiotensin Convert Enz Pending CA 125 Antigen Urine Color Urine Appearance (Clear) Urine pH (4.5-7.5) Ur Specific Leon (1.000-1.030) Urine Protein (Negative) Urine Glucose (UA) (Negative) Urine Ketones (Negative) Urine Blood (Negative) Urine Nitrite (Negative) Urine Bilirubin (Negative) Urine Urobilinogen (Negative) Ur Leukocyte Esterase (Negative) Monoscreen (Negative) 12/15/18 12/15/18 12/15/18 Range/Units 08:10 08:10 08:10 WBC (4.8-10.8) K/uL RBC (4.2-5.4) M/uL Hgb (12.0-16.0) g/dL Hct (37-47) % MCV (80-100) fL MCH (25-34) pg MCHC (32-36) g/dL RDW Std Deviation (36.4-46.3) fL RDW Coeff of Imelda (11.5-14.5) % Plt Count (130-400) K/uL MPV (7.4-10.4) fL Immature Gran % (Auto) % Neut % (Auto) % Lymph % (Auto) % Bandera % (Auto) % Eos % (Auto) % Baso % (Auto) % Immature Gran # (Auto) (0.00-0.02) K/uL Neut # (Auto) (1.4-6.5) K/uL Lymph # (Auto) (1.2-3.4) K/uL Bandera # (Auto) (0.11-0.59) K/uL Eos # (Auto) (0-0.5) K/uL Baso # (Auto) (0-0.2) K/uL Neutrophils % (Manual) % Lymphocytes % (Manual) % Reactive Lymphs % (Man) % Monocytes % (Manual) % Eosinophils % (Manual) % Neutrophils # (Manual) (1.4-6.5) K/uL Total Absolute Neuts (1.4-6.5) K/uL Lymphocytes # (Manual) (1.2-3.4) K/uL Reactive Lymphs # K/uL Total Abs Lymphocytes (1.2-3.4) K/uL Monocytes # (Manual) (0.11-0.59) K/uL Eosinophils # (Manual) (0-0.5) K/uL Ovalocytes Peripher Smr Path Cons ESR Pending PT (9.0-12.0) Seconds INR (0.9-1.1) Sodium (136-145) mmol/L Potassium (3.5-5.1) mmol/L Chloride (98-107) mmol/L Carbon Dioxide (21-32) mmol/L Anion Gap (3-11) BUN (7-18) mg/dl Creatinine (0.6-1.2) mg/dl Est Cr Clr Drug Dosing ml/min Est GFR ( Amer) Est GFR (Non-Af Amer) BUN/Creatinine Ratio (10-20) Glucose (70-99) mg/dl POC Glucose (70-99) Estimat Average Glucose mg/dl Hemoglobin A1c (4.5-5.6) % POC Lactic Acid Mike (0.90-1.70) mmol/L Lactate (0.4-2.0) mmol/L Calcium (8.5-10.1) mg/dl Total Bilirubin (0.2-1) mg/dl AST (15-37) U/L ALT (12-78) U/L Alkaline Phosphatase (45-117) U/L C-Reactive Protein Pending Total Protein (6.4-8.2) gm/dl Albumin (3.4-5.0) gm/dl Globulin (2.5-4.0) gm/dl Albumin/Globulin Ratio (0.9-2) Lipase (73-393) U/L Angiotensin Convert Enz CA 125 Antigen Pending Urine Color Urine Appearance (Clear) Urine pH (4.5-7.5) Ur Specific Leon (1.000-1.030) Urine Protein (Negative) Urine Glucose (UA) (Negative) Urine Ketones (Negative) Urine Blood (Negative) Urine Nitrite (Negative) Urine Bilirubin (Negative) Urine Urobilinogen (Negative) Ur Leukocyte Esterase (Negative) Monoscreen (Negative) 12/15/18 12/15/18 12/15/18 Range/Units 08:10 08:10 08:10 WBC (4.8-10.8) K/uL RBC (4.2-5.4) M/uL Hgb (12.0-16.0) g/dL Hct (37-47) % MCV (80-100) fL MCH (25-34) pg MCHC (32-36) g/dL RDW Std Deviation (36.4-46.3) fL RDW Coeff of Imelda (11.5-14.5) % Plt Count (130-400) K/uL MPV (7.4-10.4) fL Immature Gran % (Auto) % Neut % (Auto) % Lymph % (Auto) % Band[place] % (Auto) % Eos % (Auto) % Baso % (Auto) % Immature Gran # (Auto) (0.00-0.02) K/uL Neut # (Auto) (1.4-6.5) K/uL Lymph # (Auto) (1.2-3.4) K/uL Bandera # (Auto) (0.11-0.59) K/uL Eos # (Auto) (0-0.5) K/uL Baso # (Auto) (0-0.2) K/uL Neutrophils % (Manual) % Lymphocytes % (Manual) % Reactive Lymphs % (Man) % Monocytes % (Manual) % Eosinophils % (Manual) % Neutrophils # (Manual) (1.4-6.5) K/uL Total Absolute Neuts (1.4-6.5) K/uL Lymphocytes # (Manual) (1.2-3.4) K/uL Reactive Lymphs # K/uL Total Abs Lymphocytes (1.2-3.4) K/uL Monocytes # (Manual) (0.11-0.59) K/uL Eosinophils # (Manual) (0-0.5) K/uL Ovalocytes Peripher Smr Path Cons ESR PT 10.6 (9.0-12.0) Seconds INR 1.0 (0.9-1.1) Sodium (136-145) mmol/L Potassium (3.5-5.1) mmol/L Chloride (98-107) mmol/L Carbon Dioxide (21-32) mmol/L Anion Gap (3-11) BUN (7-18) mg/dl Creatinine (0.6-1.2) mg/dl Est Cr Clr Drug Dosing ml/min Est GFR ( Amer) Est GFR (Non-Af Amer) BUN/Creatinine Ratio (10-20) Glucose (70-99) mg/dl POC Glucose (70-99) Estimat Average Glucose 206 mg/dl Hemoglobin A1c 8.8 H (4.5-5.6) % POC Lactic Acid Mike (0.90-1.70) mmol/L Lactate 1.4 (0.4-2.0) mmol/L Calcium (8.5-10.1) mg/dl Total Bilirubin (0.2-1) mg/dl AST (15-37) U/L ALT (12-78) U/L Alkaline Phosphatase (45-117) U/L C-Reactive Protein Total Protein (6.4-8.2) gm/dl Albumin (3.4-5.0) gm/dl Globulin (2.5-4.0) gm/dl Albumin/Globulin Ratio (0.9-2) Lipase (73-393) U/L Angiotensin Convert Enz CA 125 Antigen Urine Color Urine Appearance (Clear) Urine pH (4.5-7.5) Ur Specific Leon (1.000-1.030) Urine Protein (Negative) Urine Glucose (UA) (Negative) Urine Ketones (Negative) Urine Blood (Negative) Urine Nitrite (Negative) Urine Bilirubin (Negative) Urine Urobilinogen (Negative) Ur Leukocyte Esterase (Negative) Monoscreen (Negative) 12/15/18 12/15/18 12/15/18 Range/Units 08:10 08:10 03:53 WBC 4.27 L (4.8-10.8) K/uL RBC 3.05 L (4.2-5.4) M/uL Hgb 9.7 L (12.0-16.0) g/dL Hct 28.1 L (37-47) % MCV 92.1 (80-100) fL MCH 31.8 (25-34) pg MCHC 34.5 (32-36) g/dL RDW Std Deviation 56.4 H (36.4-46.3) fL RDW Coeff of Imelda 17.2 H (11.5-14.5) % Plt Count 132 (130-400) K/uL MPV 10.5 H (7.4-10.4) fL Immature Gran % (Auto) 0.2 % Neut % (Auto) 39.7 % Lymph % (Auto) 48.9 % Bandera % (Auto) 9.4 % Eos % (Auto) 0.9 % Baso % (Auto) 0.9 % Immature Gran # (Auto) 0.01 (0.00-0.02) K/uL Neut # (Auto) 1.69 (1.4-6.5) K/uL Lymph # (Auto) 2.09 (1.2-3.4) K/uL Bandera # (Auto) 0.40 (0.11-0.59) K/uL Eos # (Auto) 0.04 (0-0.5) K/uL Baso # (Auto) 0.04 (0-0.2) K/uL Neutrophils % (Manual) % Lymphocytes % (Manual) % Reactive Lymphs % (Man) % Monocytes % (Manual) % Eosinophils % (Manual) % Neutrophils # (Manual) (1.4-6.5) K/uL Total Absolute Neuts (1.4-6.5) K/uL Lymphocytes # (Manual) (1.2-3.4) K/uL Reactive Lymphs # K/uL Total Abs Lymphocytes (1.2-3.4) K/uL Monocytes # (Manual) (0.11-0.59) K/uL Eosinophils # (Manual) (0-0.5) K/uL Ovalocytes Peripher Smr Path Cons ESR PT (9.0-12.0) Seconds INR (0.9-1.1) Sodium 137 (136-145) mmol/L Potassium 3.6 (3.5-5.1) mmol/L Chloride 102 (98-107) mmol/L Carbon Dioxide 27 (21-32) mmol/L Anion Gap 7.0 (3-11) BUN 10 (7-18) mg/dl Creatinine 1.12 (0.6-1.2) mg/dl Est Cr Clr Drug Dosing 64.0 ml/min Est GFR ( Amer) 64.9 Est GFR (Non-Af Amer) 56.0 BUN/Creatinine Ratio 8.9 L (10-20) Glucose 171 H (70-99) mg/dl POC Glucose 226 H (70-99) Estimat Average Glucose mg/dl Hemoglobin A1c (4.5-5.6) % POC Lactic Acid Mike (0.90-1.70) mmol/L Lactate (0.4-2.0) mmol/L Calcium 8.5 (8.5-10.1) mg/dl Total Bilirubin 0.6 (0.2-1) mg/dl AST 93 H (15-37) U/L ALT 94 H (12-78) U/L Alkaline Phosphatase 101 (45-117) U/L C-Reactive Protein Total Protein 6.7 (6.4-8.2) gm/dl Albumin 3.3 L (3.4-5.0) gm/dl Globulin 3.4 (2.5-4.0) gm/dl Albumin/Globulin Ratio 1.0 (0.9-2) Lipase 248 (73-393) U/L Angiotensin Convert Enz CA 125 Antigen Urine Color Urine Appearance (Clear) Urine pH (4.5-7.5) Ur Specific Leon (1.000-1.030) Urine Protein (Negative) Urine Glucose (UA) (Negative) Urine Ketones (Negative) Urine Blood (Negative) Urine Nitrite (Negative) Urine Bilirubin (Negative) Urine Urobilinogen (Negative) Ur Leukocyte Esterase (Negative) Monoscreen (Negative) 12/14/18 12/14/18 12/14/18 Range/Units 20:00 19:34 19:34 WBC (4.8-10.8) K/uL RBC (4.2-5.4) M/uL Hgb (12.0-16.0) g/dL Hct (37-47) % MCV (80-100) fL MCH (25-34) pg MCHC (32-36) g/dL RDW Std Deviation (36.4-46.3) fL RDW Coeff of Imelda (11.5-14.5) % Plt Count (130-400) K/uL MPV (7.4-10.4) fL Immature Gran % (Auto) % Neut % (Auto) % Lymph % (Auto) % [place] % (Auto) % Eos % (Auto) % Baso % (Auto) % Immature Gran # (Auto) (0.00-0.02) K/uL Neut # (Auto) (1.4-6.5) K/uL Lymph # (Auto) (1.2-3.4) K/uL [place] # (Auto) (0.11-0.59) K/uL Eos # (Auto) (0-0.5) K/uL Baso # (Auto) (0-0.2) K/uL Neutrophils % (Manual) % Lymphocytes % (Manual) % Reactive Lymphs % (Man) % Monocytes % (Manual) % Eosinophils % (Manual) % Neutrophils # (Manual) (1.4-6.5) K/uL Total Absolute Neuts (1.4-6.5) K/uL Lymphocytes # (Manual) (1.2-3.4) K/uL Reactive Lymphs # K/uL Total Abs Lymphocytes (1.2-3.4) K/uL Monocytes # (Manual) (0.11-0.59) K/uL Eosinophils # (Manual) (0-0.5) K/uL Ovalocytes Peripher Smr Path Cons ESR PT (9.0-12.0) Seconds INR (0.9-1.1) Sodium (136-145) mmol/L Potassium (3.5-5.1) mmol/L Chloride (98-107) mmol/L Carbon Dioxide (21-32) mmol/L Anion Gap (3-11) BUN (7-18) mg/dl Creatinine (0.6-1.2) mg/dl Est Cr Clr Drug Dosing ml/min Est GFR ( Amer) Est GFR (Non-Af Amer) BUN/Creatinine Ratio (10-20) Glucose (70-99) mg/dl POC Glucose (70-99) Estimat Average Glucose mg/dl Hemoglobin A1c (4.5-5.6) % POC Lactic Acid Mike 2.79 H (0.90-1.70) mmol/L Lactate (0.4-2.0) mmol/L Calcium (8.5-10.1) mg/dl Total Bilirubin (0.2-1) mg/dl AST (15-37) U/L ALT (12-78) U/L Alkaline Phosphatase (45-117) U/L C-Reactive Protein Total Protein (6.4-8.2) gm/dl Albumin (3.4-5.0) gm/dl Globulin (2.5-4.0) gm/dl Albumin/Globulin Ratio (0.9-2) Lipase (73-393) U/L Angiotensin Convert Enz CA 125 Antigen Urine Color Yellow Urine Appearance Clear (Clear) Urine pH 5.5 (4.5-7.5) Ur Specific Leon 1.017 (1.000-1.030) Urine Protein Negative (Negative) Urine Glucose (UA) Negative (Negative) Urine Ketones Negative (Negative) Urine Blood Negative (Negative) Urine Nitrite Negative (Negative) Urine Bilirubin Negative (Negative) Urine Urobilinogen Negative (Negative) Ur Leukocyte Esterase Negative (Negative) Monoscreen Negative (Negative) 12/14/18 12/14/18 Range/Units 19:34 19:34 WBC 6.93 (4.8-10.8) K/uL RBC 3.44 L (4.2-5.4) M/uL Hgb 11.0 L (12.0-16.0) g/dL Hct 31.0 L (37-47) % MCV 90.1 (80-100) fL MCH 32.0 (25-34) pg MCHC 35.5 (32-36) g/dL RDW Std Deviation 53.1 H (36.4-46.3) fL RDW Coeff of Imelda 16.5 H (11.5-14.5) % Plt Count 186 (130-400) K/uL MPV 9.7 (7.4-10.4) fL Immature Gran % (Auto) % Neut % (Auto) % Lymph % (Auto) % Band[place] % (Auto) % Eos % (Auto) % Baso % (Auto) % Immature Gran # (Auto) (0.00-0.02) K/uL Neut # (Auto) (1.4-6.5) K/uL Lymph # (Auto) (1.2-3.4) K/uL Band[place] # (Auto) (0.11-0.59) K/uL Eos # (Auto) (0-0.5) K/uL Baso # (Auto) (0-0.2) K/uL Neutrophils % (Manual) 53.1 % Lymphocytes % (Manual) 24.3 % Reactive Lymphs % (Man) 17.4 % Monocytes % (Manual) 3.5 % Eosinophils % (Manual) 1.7 % Neutrophils # (Manual) 3.68 (1.4-6.5) K/uL Total Absolute Neuts 3.68 (1.4-6.5) K/uL Lymphocytes # (Manual) 1.68 (1.2-3.4) K/uL Reactive Lymphs # 1.21 K/uL Total Abs Lymphocytes 2.89 (1.2-3.4) K/uL Monocytes # (Manual) 0.24 (0.11-0.59) K/uL Eosinophils # (Manual) 0.12 (0-0.5) K/uL Ovalocytes 1+ Peripher Smr Path Cons ESR PT (9.0-12.0) Seconds INR (0.9-1.1) Sodium 134 L (136-145) mmol/L Potassium 4.1 (3.5-5.1) mmol/L Chloride 99 (98-107) mmol/L Carbon Dioxide 24 (21-32) mmol/L Anion Gap 10.0 (3-11) BUN 13 (7-18) mg/dl Creatinine 1.34 H (0.6-1.2) mg/dl Est Cr Clr Drug Dosing 53.4 ml/min Est GFR ( Amer) 52.3 Est GFR (Non-Af Amer) 45.1 BUN/Creatinine Ratio 9.9 L (10-20) Glucose 245 H (70-99) mg/dl POC Glucose (70-99) Estimat Average Glucose mg/dl Hemoglobin A1c (4.5-5.6) % POC Lactic Acid Mike (0.90-1.70) mmol/L Lactate (0.4-2.0) mmol/L Calcium 9.5 (8.5-10.1) mg/dl Total Bilirubin 0.7 (0.2-1) mg/dl AST 91 H (15-37) U/L ALT 106 H (12-78) U/L Alkaline Phosphatase 127 H (45-117) U/L C-Reactive Protein Total Protein 8.0 (6.4-8.2) gm/dl Albumin 4.0 (3.4-5.0) gm/dl Globulin 4.0 (2.5-4.0) gm/dl Albumin/Globulin Ratio 1.0 (0.9-2) Lipase 400 H (73-393) U/L Angiotensin Convert Enz CA 125 Antigen Urine Color Urine Appearance (Clear) Urine pH (4.5-7.5) Ur Specific Leon (1.000-1.030) Urine Protein (Negative) Urine Glucose (UA) (Negative) Urine Ketones (Negative) Urine Blood (Negative) Urine Nitrite (Negative) Urine Bilirubin (Negative) Urine Urobilinogen (Negative) Ur Leukocyte Esterase (Negative) Monoscreen (Negative) PG Care Time/CCT Total # of Minutes Spent Total Time Spent with Patient: Total time spent is greater than 50% in coordination of care (as documented) at patient's floor/unit and/or counseling patient:
[2018-12-15] MEDS: DOCUSATE SODIUM/SENNA 50/8.6MG TAB PO SCH (21:02)
[2018-12-16] MEDS: LACTATED RINGER'S 1,000 ML IV SCH (01:53)
[2018-12-16] MEDS: MoRPHine SULFATE 4 MG/ML 1 ML CARP\\VIAL IV PRN ×5 (04:28→22:31)
[2018-12-16] MEDS: LEVOTHYROXINE SODIUM 112 MCG TABLET PO SCH (05:31)
[2018-12-16 08:04] LABS: Hematocrit (blood only) 30.2 % (37-47); Hemoglobin 10.3 g/dL (12.0-16.0); Mean Corpuscular Hgb Conc 34.1 g/dL (32-36); Mean Corpuscular Volume 92.6 fL (80-100); Mean Platelet Volume 9.6 fL (7.4-10.4); Platelet Count 142 K/uL (130-400); RDW Coefficient of Variation 17.2 % (11.5-14.5); RDW Standard Deviation 57.5 fL (36.4-46.3); Red Blood Count 3.26 M/uL (4.2-5.4); White Blood Count 5.64 K/uL (4.8-10.8)
[2018-12-16 08:43] LABS: Albumin Level 3.2 gm/dl (3.4-5.0); BUN Creatinine Ratio 8.2 (10-20); Calcium 8.4 mg/dl (8.5-10.1); Creatinine Clr Calc Pharmacy 62.8 ml/min; Est GFR (African American) 63.6; Est GFR (Non-African American) 54.9; Magnesium 1.6 mg/dl (1.8-2.4); Potassium 3.9 mmol/L (3.5-5.1)
[2018-12-16 08:46] LABS: Albumin Globulin Ratio 0.9 (0.9-2); Bilirubin,Total 0.9 mg/dl (0.2-1); Globulin 3.7 gm/dl (2.5-4.0); Total Protein 6.9 gm/dl (6.4-8.2)
[2018-12-16] MEDS: DOCUSATE SODIUM/SENNA 50/8.6MG TAB PO SCH ×2 (09:39→21:21)
[2018-12-16] MEDS: ATORVASTATIN 10 MG TAB PO SCH (09:40)
[2018-12-16] MEDS: CITALOPRAM 40 MG TAB PO SCH (09:40)
[2018-12-16] MEDS: INSULIN ASPART 100 UNITS/ML 3 ML PEN SC SCH ×4 (09:42→21:29)
[2018-12-16] MEDS ORDERED: MAGNESIUM OXIDE 400 MG TAB PO ONE (10:05)
[2018-12-16] MEDS: HEPARIN SOD 5,000 UNIT/0.5 ML VIAL SQ SCH (10:25)
--- NOTE | 2018-12-16 10:51 | Consultation Report ---
DATE OF CONSULTATION: 12/16/2018 MEDICAL ONCOLOGY CONSULTATION REASON FOR CONSULTATION: Splenomegaly. HISTORY OF PRESENT ILLNESS: Tamera is a very pleasant 53-year-old [facility] woman, who was admitted on 12/14/2018 for persistent left-sided abdominal pain. Tamera who has normally pretty decent health has been struggling with left upper quadrant abdominal pain, she estimates for 1-2 months associated with early satiety. She denies any fevers, chills. She has had no exposures to infectious patients. She did travel to the [place] about a month ago to [place]. She describes the pain as dull ache which is unremitting and again admits to early satiety. The pain became so severe, she presented to the Emergency Room. CT scan of the abdomen and pelvis was performed, which revealed a not only enlarged spleen but also hepatomegaly. Specifically, the liver measures 27 cm in length and the spleen 19.5 cm with a 3.1 cm subcapsular focus in the inferior spleen with trace perisplenic fluid thought to represent a possible splenic infarct. Marked hepatomegaly with severe hepatic steatosis is noted. The patient has no prior history of liver disease. Review of her peripheral blood counts demonstrated mild pancytopenia, but again not surprising with the patient's spleen size. Clinically, she is quite tender in the left upper quadrant. This patient is also battled with chronic cough which has been semi-productive, she estimates since the spring. She was treated with antibiotics in the past, but the cough has not been formally worked up. PAST MEDICAL HISTORY: Significant for anxiety/depression, hypothyroidism, type 2 diabetes mellitus, hypertension, left ovarian cyst, renal lithiasis, chronic anemia, elevated lipase, lung granuloma. MEDICATIONS: Prior to admission, atorvastatin 10 mg p.o. daily, cephalexin 500 mg p.o. q.i.d., citalopram 40 mg p.o. daily, levothyroxine 112 mcg p.o. daily, lisinopril 5 mg p.o. daily, metformin 1000 mg p.o. daily, triamterene/hydrochlorothiazide 1 tablet p.o. daily. ALLERGIES: No known drug allergies. SOCIAL HISTORY: The patient is . She has 7 children. Negative for alcohol, cigarettes, or illicit drugs. FAMILY HISTORY: Noncontributory. REVIEW OF SYSTEMS: Most notably for left upper quadrant pain. She denies fevers, chills. She is not anorexic or losing weight, but complains of early satiety. SKIN: No rashes or lesions. No history of dermatoses. HEENT: Negative for headaches, lightheadedness or dizziness. No acute visual or hearing deficits. No sinus symptoms, sore throat or dysphagia. LYMPH: No history of lymphoproliferative disease. CARDIAC: No history of coronary artery disease. No current angina or palpitations. PULMONARY: Negative for COPD. She does complain of chronic cough which is semi-productive. She denies hemoptysis. No dyspnea on exertion. GASTROINTESTINAL: Negative for nausea or vomiting. Positive for left upper quadrant abdominal pain and early satiety. She denies diarrhea or constipation. No hematochezia or melena stools. GENITOURINARY: No hematuria, dysuria, urinary incontinence. PSYCHIATRIC: Positive for anxiety/depression. MUSCULOSKELETAL: No generalized weakness. No arthralgias or myalgias. ENDOCRINE: Positive for diabetes mellitus and hypothyroidism. NEUROLOGIC: Negative for seizure, stroke, or migraine headache. HEMATOLOGIC: Positive for mild pancytopenia. PHYSICAL EXAMINATION: GENERAL: A very pleasant 53-year-old female, in no acute distress, awake, alert and appropriate. VITAL SIGNS: Temperature 36.9, pulse 88, respiratory rate 16, blood pressure 112/68. SKIN: Warm, dry, noncyanotic without petechia, rash or ecchymosis. HEENT: Head is atraumatic, normocephalic. Eyes: PERRLA, EOMI. Sclerae nonicteric. No conjunctival injection. Nares are patent without rhinorrhea or discharge. Throat is clear. Tongue is midline. Mucous membranes are moist. No buccal lesions or ulcerations are noted. NECK: Supple without JVD or thyromegaly. HEART: Regular rate and rhythm. LUNGS: Clear to auscultation bilaterally. ABDOMEN: Soft, very tender in the left upper quadrant, she guards during the examination. Bowel sounds hypoactive. EXTREMITIES: Musculoskeletal strength and pulses are equal in all 4 quadrants. No clubbing, cyanosis or edema. NEUROLOGICAL: Grossly intact. LABORATORY DATA: WBC count 5640, hemoglobin 10.3, platelet count 142,000. Sodium 135, potassium 3.9, chloride 99, carbon dioxide 31, creatinine 1.14, BUN 9. Magnesium slightly decreased at 1.6, AST 81, ALT 92, albumin 3.2. IMPRESSION: 1. Left upper quadrant pain. 2. Hepatosplenomegaly. 3. Hypomagnesemia. 4. Elevated liver transaminases. 5. Hypoalbuminemia. 6. Mild pancytopenia. PLAN: I have been asked to evaluate Tamera for what appears to be a subacute onset splenomegaly. It would appear she has been symptomatic for the past couple of months. Her liver and spleen are very impressive on CT of the abdomen and pelvis with evidence of possible splenic infarct. I would proceed with CTA of the abdomen and pelvis to fully evaluate the abdominal vasculature specifically looking for portal or splenic vein thromboses. Differential diagnoses in adults with splenomegaly include liver disease, vascular obstruction, or hematologic malignancies. Careful review of her blood counts suggests no evidence of an emerging hematologic malignancy. Autoimmune cytopenias should also be ruled out. We will check reticulocyte count. However, based on her clinical picture, I would focus in on the liver, perhaps ask gastroenterology to evaluate potentially obtaining a biopsy of the liver to rule out primary biliary cirrhosis versus HAYES versus autoimmune hepatitis. As for management of her pain, if infection is ruled out, perhaps a prednisone would be helpful in the short term. Again, would focus in on potentially vascular obstruction versus chronic liver disease as the underlying cause. We will continue to follow Tamera during her hospital stay. Thank you very much for allowing me to participate in her care.
[2018-12-16] MEDS ORDERED: IOVERSOL 100ml IV PRN (11:15)
--- NOTE | 2018-12-16 11:41 | CT Scan Report ---
CT abd pelvis oral and IV con CLINICAL HISTORY: 53 years-old Female presenting with marked splenomegaly and splenic infarct, Rule o ut splenic and hepatic thrombosis. TECHNIQUE: Multidetector CT of the abdomen and pelvis was performed after the administration of oral and intravenous contrast. IV contrast: 93 mL of Optiray 320. One or more dose lowering techniques wer e used consistent with the principles of ALARA (as low as reasonably achievable), including automatic exposure control, mA or kV adjustment to individual patient size, and/or use of iterative reconstruc tion. COMPARISON: Noncontrast CT from 12/14/2018. CT DOSE (mGy.cm): The estimated cumulative dose is 1238.18 mGy.cm. FINDINGS: Cutter And Presser topogram: Cholecystectomy clips. IUD in place. Lung bases: Normal heart size. Trace bilateral pleural effusions. Dependent consolidative changes lik chanelle atelectasis. Liver: Enlarged measuring 27 cm in maximal sagittal dimension. Density suggestive of hepatic steatosi s. No focal lesion. Patent hepatic vasculature. Biliary: No intrahepatic or extrahepatic biliary ductal dilatation. Gallbladder surgically absent. Pancreas: Normal. Spleen: Splenic infarct evident. Enlarged spleen, which measures 20 cm in maximal sagittal dimension. Splenic artery and vein patent. Adrenal glands: Normal. Kidneys and ureters: Calcification in the lateral aspect of the left kidney may represent a calculus within a calyceal diverticulum or a parenchymal calcification. Renal parenchyma otherwise normal. No other evidence of nephrolithiasis or hydronephrosis. Ureters nondistended. Bladder: Incompletely evaluated secondary to underdistention. Pelvic organs: IUD in place within the uterus, which may be enlarged. Multiple follicles enlarged the left ovary. Right ovary normal. Bowel: Normal appendix. No bowel obstruction. Peritoneal cavity: Trace perisplenic fluid. No free intraperitoneal gas. Lymph nodes: No enlarged lymph nodes in the abdomen or pelvis. Vasculature: Aorta and IVC patent and normal in caliber. Abdominal wall: Normal. Musculoskeletal: Normal. IMPRESSION: 1. Hepatosplenomegaly as on prior exam. 2. Splenic infarct, better delineated on the current exam. 3. The uterus also appears enlarged. Correlate clinically to exclude hormonal stimulation, endogenou s or exogenous. 4. Enlarged left ovary. Consider pelvic ultrasound for better assessment. Electronically signed by: Andrea Harrison M.D. 12/16/2018 11:40 AM
--- NOTE | 2018-12-16 12:07 | Gastrointestinal Consultation ---
Date of Consultation December 16, 2018 Assessment & Plan (1) Hepatosplenomegaly: Pain is likely caused by the splenomegaly. Differentials for the cause of the splenomegaly include fatty liver disease, malignancy (appreciate hem/onc opinion), ? abnormally on imaging of the splenomegaly - could this be vascular occlusion - will review CT with IV contrast when results are available. Present on Admission?: Yes (2) Abnormal LFTs: Elevated transaminases are likely related to fatty liver disease, most likely moderate to severe steatosis - though unable to determine this from US, CT would need OP fibroscan. I see that liver bx is already ordered. Will review results when available. The recent increase in the transaminases are likely related to ? viral illness which caused the severe fatigue and malaise over the past month. A work up to exclude [place], CMV, Parvovirus, autoimmune diseases such as autoimmune hepatitis, PSC, PBC, Alpha-1 antitrypsin deficiency. Esequiel's Disease. However, her liver synthetic function is preserved and work up to exclude these less common diseases (compared to CHAVEZ) can be completed as an OP. There is no evidence of bile duct obstruction and LFt elevation pattern is more typically of hepatocellular insult, thus no indication for ERCP or other procedure at this time and no contraindication to regular diet. Present on Admission?: Yes (3) Hepatic steatosis: See above. Counselling on weight loss, no alcohol, minimal tylenol use. OP GI follow up. Present on Admission?: Yes Supervising Physician Co-Signing Physician Notes I have seen and examined the patient with MARILEE Hill. 53 yo fm with a history of htn, hyperlipidemia, fatty liver on imaging, admitted with abdominal pain, GI consulted for abdominal pain and hepatosplenomegaly. PE: alert and oriented, abd - soft nt nd +bs, slightly distended abdomen, Ext - no price Mild ast/alt elevation likely from underlying fatty liver Abd tegan and CT reviewed. CT showing splenic infarct No evidence of thrombosis in any mesenteric vessel. Suspect her acute pain may be from a splenic infarct- though unclear etiology unless an underlying hypercoaguable state?, no recent trauma. Would recommend an outpatient eus-liver biopsy to rule out chavez, granulomatous involvement. Prn pain control for now given findings of splenic infarct, guard against traumatic sports or contact given enlarged spleen with splenic infarct. History of Present Illness Reason for Consultation: Hepatosplenomegaly Requesting Physician: Maria Ines Gunderson PA-C, Dr. Brar Attending Physician: Lon Flores History of Present Illness Ms. Tamera Acuña is a 53 yr old [place] female with a hx of HTN, Hyperlipidemia, DM-2, hypthyroidism who presented to the ED yesterday for abdominal pain. She reports one year of feeling bilateral but more left than right upper abdomen pressure, feeling, "like something is in there pushing out." This discomfort prevents her from being able to get comfortable laying on either side in bed, also worse pain with leaning forward. She also feels worse pressure/pain when her stomach is full. Additionally, she feels very hungry on an empty stomach. She has had some nausea, no vomiting, diarrhea or constipation, no melena or hematochezia. Of note, in addition to the abdominal pain, she hasn't been feeling well. A few months ago, she was seen in urgent care for cough/fatigue and was told that she had a virus. Then, a week ago,because these symptoms persisted, she was seen in urgent care for and was dx'ed with pneumonia and placed on cephalexin. Her cough and fatigue have improved since that time. On Wednesday, (2 days ago), she experienced severe LUQ pain - similar in character to what she has been having but much more severe. She presented to the [facility] ED. Non contrast CT with enlarged liver with steatohepatitis and enlarged spleen, with 3cm area of decreased attenuation in the spleen. She was found to have anemia: Hb 10, down from 12.8 in October 2017, MCV is normal. AST and ALT are elevated: AST 81 (baseline 30's in 2018), ALT 92 (baseline 66). Bilirubin, Alk Phos and INR remain normal. US and CT w/o mention of bile duct abnormalities. CXR suggests granuloma. On exam, the pt is awake, alert, oriented, continues with LUQ pressure type pain, comfortable only on Morphine. She continues with nausea but no vomiting, diarrhea, constipation and denies jaundice or acholic stools. Regarding risks for liver disease, she has been overweight for about 30 yrs. She rarely drinks alcohol and only small amts. No family hx of liver disease. She is post cholecystectomy a few yrs ago. Allergies Allergy/AdvReac Type Severity Reaction Status Date / Time No Known Allergies Allergy Verified 08/14/19 21:32 Home Medications Home Medications Medication Instructions Recorded Confirmed Type atorvastatin 10 mg PO DAILY 12/14/18 12/14/18 History cephalexin 500 mg PO QID 12/14/18 12/14/18 History citalopram 40 mg PO DAILY 12/14/18 12/14/18 History levothyroxine 112 mcg PO QAM 12/14/18 12/14/18 History lisinopril 5 mg PO DAILY 12/14/18 12/14/18 History metformin 1,000 mg PO QAM 12/14/18 12/14/18 History triamterene-hydrochlorothiazid 1 tab PO DAILY 12/14/18 12/14/18 History Patient History Surgical History History of cholecystectomy Social History Preferred Language: Azeri Communication Ability: Effective Machine 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 No fevers, noweight loss Eyes: No eye redness, or pain, no recent vision changes Resp: No SOB, no cough Cardio: No palpitations/irregular beats, no chest pain GI: See HPI + abdominal pain,and nausea : Denies pain on urination Skin: No jaundice, itching or new rashes Hem: no excessive bleeding or bruising Constitutional: +weakness, weight loss, denies fevers Eyes: No eye redness, no impaired vision or double vision Physical Exam Constitutional: WD/WN, vitals as above + obese Eyes: PERRL, conjunctivae normal, anicteric sclerae ENMT: external ear and nose normal, oropharynx normal Neck: trachea midline, no thyromegaly Respiratory: normal respiratory effort, lungs clear to auscultation Cardiovascular: RRR, no murmur, no edema Gastrointestinal (Abdomen): Percussion/Palpation: abdomen soft and + hepatosplenomegaly (palpable) Abdomen diffusely tender; increased tenderness in the LUQ. Musculoskeletal: no cyanosis or clubbing, extremities motor strength 5/5 Skin: no rashes, warm and dry no jaundice Neurologic: PERRL, EOMI, accommodation nl, no face palsy, no dysarthria Psychiatric: A+Ox3, euthymic affect Lymphatic: no cervical or axillary lymphadenopathy Results & Data Vital Signs (Past 12 Hours) Vital Signs Temp Pulse Resp BP Pulse Ox 12/16/18 07:45 36.9 C 88 16 112/68 89 L
--- NOTE | 2018-12-16 14:26 | Ultrasound Report ---
ULTRASOUND-GUIDED CORE BIOPSY LIVER CLINICAL HISTORY: Hepatomegaly and hepatic steatosis. Splenomegaly. COMPARISON STUDY: Abdominal CT dated 12/16/2018. PROCEDURE: The risks, benefits, and alternatives to the procedure were discussed with the patient. Wr itten informed consent was obtained. The patient was placed supine in ultrasound, and a safe window f or biopsy in the right lobe of the liver was localized by ultrasound. The right abdominal wall was pr epped and draped in the usual sterile fashion. The skin and soft tissues were anesthetized with 1% li docaine. A single core biopsy was performed under ultrasound guidance utilizing an 18-gauge device wi th a 2 cm throw. The specimen was submitted to pathology in formalin. The patient tolerated the proce dure well and left the department in satisfactory condition. IMPRESSION: Completed core needle biopsy of the liver as above. Electronically signed by: Carl Whitten M.D. 12/16/2018 2:25 PM
--- NOTE | 2018-12-16 15:23 | Hospitalist Progress Note ---
Date of Service December 16, 2018 Assessment & Plan (1) Left sided abdominal pain: - Likely related to splenomegaly noted on CT A/P (significantly increased since October 2017). - Spleen US showed enlargement, trace perisplenic fluid but no evidence of infarct. - CT A/P showed hepatosplenomegaly, splenic infarct, enlarged uterus and left ovary. - CBC with anemia and mild leukopenia; peripheral smear pending. - [place] test was negative; mononucleosis is unlikely etiology. - Consider sarcoidosis in setting of lung granulomas and cough -- COMPA level & Vit D 1,25 pending. May require biopsy of lung granulomas. - CA-125, Lipase, ESR and CRP WNL. - Consulted heme/onc, appreciate input. - Bowel regimen to avoid abd pain induced by constipation. - Morphine 4 mg IV q3hr prn pain -- using q4-5hr; consider addition of steroids. (2) Splenomegaly: - As noted above. (3) Lung granuloma: - Concern for sarcoidosis in setting of cough, splenomegaly. Calcium level is WNL. - COMPA level and Vit D 1,25 level pending. (4) Hepatic steatosis: - Noted on CT A/P with hepatomegaly. - Consulted GI, appreciate input. - S/p liver biopsy this afternoon, path pending. (5) Abnormal LFTs: - Likely related to hepatic steatosis; AST and ALT remain elevated. - Continue statin with close monitoring of LFTs. - Liver biopsy path pending. - CMV, Parvovirus and Hepatitis panel all pending. Consider work up for PSC, PBC, Alpha-1 antitrypsin, Esequiel's disease as well. (6) Left ovarian cyst: - Left ovary is abnormally enlarged with several small cysts. - Will need outpatient gyne follow up. (7) Hypertension: - Holding home Lisinopril & Triamterene/HCTZ due to elevated Cr at admission. - BP has been stable. (8) HLD (hyperlipidemia): - Continue statin -- hold if LFTs trend up. (9) Hypothyroidism: - Continue Synthroid 112 mcg daily as prescribed. - TSH pending. (10) Depression: - Continue Celexa as prescribed. (11) Diabetes: - Hgb A1C was 8.8. - Holding home Metformin. - SSI coverage as inpt. (12) Anemia: - Likely dilutional related to IV fluids. - Monitor CBC qAM. (13) DVT prophylaxis: - Holding heparin for procedure. Dispo: Med/surg; discharge pending evaluation of multiple issues and pain control. Supervising Physician Co-Signing Physician Notes Attending Attestation - Chart reviewed, care plan d/w ELIZABETH Buck. I agree w/ the ross components of her documentation. 53yo female with hepatosplenomegaly, splenic infarct, abnormal LFTs, ovarian cyst, and pulmonary granulomas. Abdominal pain likely due to splenomegaly/splenic infarct. Underlying diagnosis still uncertain. Liver bx obtained today to help establish definitive diagnosis. Appreciate GI and heme/onc consults. Agree with work-up for sarcoid as granulomatous disease could tie together all the current findings. Consider additional viral studies as suggested by GI. Lon Flores MD Subjective Pt. states abd pain is well controlled with IV Morphine. She has ongoing LUQ pain but is sitting up in chair this morning. Has not had a BM but is passing gas. Denies nausea/vomiting. Plan for liver biopsy this afternoon. Review of Systems Review of Systems: All systems reviewed & are unremarkable except as noted in HPI & below Constitutional: no fever, no chills, no fatigue, no weakness and no anorexia Respiratory: no cough, no dyspnea, no dyspnea on exertion and no wheezing Cardiovascular: no chest pain, no palpitations and no edema Gastrointestinal: + abdominal pain and + constipation; no nausea and no vomiting Genitourinary: no difficulty urinating Musculoskeletal: no back pain and no joint pain Integumentary: no non-healing lesions Physical Exam Physical Exam: General: Resting comfortably HEENT: NC/AT; PERRLA with EOMI; [place] conjunctiva, MMM. No erythema of posterior pharynx Neck: Supple and nontender Cardiac: RRR Lungs: CTA bilaterally Abdomen: Bowel normoactive X 4; TTP over LUQ, splenomegaly noted. Extremities: Warm. No edema present Neuro: No focal weakness Skin: No rash Results & Data Vital Signs (Past 12 Hours) Vital Signs Temp Pulse Pulse Resp BP Pulse Ox 12/16/18 15:02 36.9 C 63 18 112/73 93 12/16/18 14:15 36.8 C 70 18 131/77 96 12/16/18 07:45 36.9 C 88 16 112/68 89 L Laboratory Results 08/16/19 08/16/19 08/16/19 Range/Units 12:12 09:17 08:06 WBC (4.8-10.8) K/uL RBC (4.2-5.4) M/uL Hgb (12.0-16.0) g/dL Hct (37-47) % MCV (80-100) fL MCH (25-34) pg MCHC (32-36) g/dL RDW Std Deviation (36.4-46.3) fL RDW Coeff of Imelda (11.5-14.5) % Plt Count (130-400) K/uL MPV (7.4-10.4) fL ESR (0-21) mm/hr Sodium (136-145) mmol/L Potassium (3.5-5.1) mmol/L Chloride (98-107) mmol/L Carbon Dioxide (21-32) mmol/L Anion Gap (3-11) BUN (7-18) mg/dl Creatinine (0.6-1.2) mg/dl Est Cr Clr Drug Dosing ml/min Est GFR ( Amer) Est GFR (Non-Af Amer) BUN/Creatinine Ratio (10-20) Glucose (70-99) mg/dl POC Glucose 184 H 176 H (70-99) Calcium (8.5-10.1) mg/dl Magnesium (1.8-2.4) mg/dl Total Bilirubin (0.2-1) mg/dl AST (15-37) U/L ALT (12-78) U/L Alkaline Phosphatase (45-117) U/L C-Reactive Protein (0-0.29) mg/dl Total Protein (6.4-8.2) gm/dl Albumin (3.4-5.0) gm/dl Globulin (2.5-4.0) gm/dl Albumin/Globulin Ratio (0.9-2) CA 125 Antigen (<35) U/ML Vit D 1,25-Dihyd Total Pending 1,25 Dihydroxy Vit D2 Pending 1,25 Dihydroxy Vit D3 Pending 12/16/18 12/16/18 12/15/18 Range/Units 07:49 07:49 20:43 WBC 5.64 (4.8-10.8) K/uL RBC 3.26 L (4.2-5.4) M/uL Hgb 10.3 L (12.0-16.0) g/dL Hct 30.2 L (37-47) % MCV 92.6 (80-100) fL MCH 31.6 (25-34) pg MCHC 34.1 (32-36) g/dL RDW Std Deviation 57.5 H (36.4-46.3) fL RDW Coeff of Imelda 17.2 H (11.5-14.5) % Plt Count 142 (130-400) K/uL MPV 9.6 (7.4-10.4) fL ESR (0-21) mm/hr Sodium 135 L (136-145) mmol/L Potassium 3.9 (3.5-5.1) mmol/L Chloride 99 (98-107) mmol/L Carbon Dioxide 31 (21-32) mmol/L Anion Gap 5.0 (3-11) BUN 9 (7-18) mg/dl Creatinine 1.14 (0.6-1.2) mg/dl Est Cr Clr Drug Dosing 62.8 ml/min Est GFR ( Amer) 63.6 Est GFR (Non-Af Amer) 54.9 BUN/Creatinine Ratio 8.2 L (10-20) Glucose 160 H (70-99) mg/dl POC Glucose 202 H (70-99) Calcium 8.4 L (8.5-10.1) mg/dl Magnesium 1.6 L (1.8-2.4) mg/dl Total Bilirubin 0.9 (0.2-1) mg/dl AST 81 H (15-37) U/L ALT 92 H (12-78) U/L Alkaline Phosphatase 108 (45-117) U/L C-Reactive Protein (0-0.29) mg/dl Total Protein 6.9 (6.4-8.2) gm/dl Albumin 3.2 L (3.4-5.0) gm/dl Globulin 3.7 (2.5-4.0) gm/dl Albumin/Globulin Ratio 0.9 (0.9-2) CA 125 Antigen (<35) U/ML Vit D 1,25-Dihyd Total 1,25 Dihydroxy Vit D2 1,25 Dihydroxy Vit D3 12/15/18 12/15/18 12/15/18 Range/Units 17:21 08:10 08:10 WBC (4.8-10.8) K/uL RBC (4.2-5.4) M/uL Hgb (12.0-16.0) g/dL Hct (37-47) % MCV (80-100) fL MCH (25-34) pg MCHC (32-36) g/dL RDW Std Deviation (36.4-46.3) fL RDW Coeff of Imelda (11.5-14.5) % Plt Count (130-400) K/uL MPV (7.4-10.4) fL ESR 7 (0-21) mm/hr Sodium (136-145) mmol/L Potassium (3.5-5.1) mmol/L Chloride (98-107) mmol/L Carbon Dioxide (21-32) mmol/L Anion Gap (3-11) BUN (7-18) mg/dl Creatinine (0.6-1.2) mg/dl Est Cr Clr Drug Dosing ml/min Est GFR ( Amer) Est GFR (Non-Af Amer) BUN/Creatinine Ratio (10-20) Glucose (70-99) mg/dl POC Glucose 170 H (70-99) Calcium (8.5-10.1) mg/dl Magnesium (1.8-2.4) mg/dl Total Bilirubin (0.2-1) mg/dl AST (15-37) U/L ALT (12-78) U/L Alkaline Phosphatase (45-117) U/L C-Reactive Protein 1.07 H (0-0.29) mg/dl Total Protein (6.4-8.2) gm/dl Albumin (3.4-5.0) gm/dl Globulin (2.5-4.0) gm/dl Albumin/Globulin Ratio (0.9-2) CA 125 Antigen (<35) U/ML Vit D 1,25-Dihyd Total 1,25 Dihydroxy Vit D2 1,25 Dihydroxy Vit D3 12/15/18 Range/Units 08:10 WBC (4.8-10.8) K/uL RBC (4.2-5.4) M/uL Hgb (12.0-16.0) g/dL Hct (37-47) % MCV (80-100) fL MCH (25-34) pg MCHC (32-36) g/dL RDW Std Deviation (36.4-46.3) fL RDW Coeff of Imelda (11.5-14.5) % Plt Count (130-400) K/uL MPV (7.4-10.4) fL ESR (0-21) mm/hr Sodium (136-145) mmol/L Potassium (3.5-5.1) mmol/L Chloride (98-107) mmol/L Carbon Dioxide (21-32) mmol/L Anion Gap (3-11) BUN (7-18) mg/dl Creatinine (0.6-1.2) mg/dl Est Cr Clr Drug Dosing ml/min Est GFR ( Amer) Est GFR (Non-Af Amer) BUN/Creatinine Ratio (10-20) Glucose (70-99) mg/dl POC Glucose (70-99) Calcium (8.5-10.1) mg/dl Magnesium (1.8-2.4) mg/dl Total Bilirubin (0.2-1) mg/dl AST (15-37) U/L ALT (12-78) U/L Alkaline Phosphatase (45-117) U/L C-Reactive Protein (0-0.29) mg/dl Total Protein (6.4-8.2) gm/dl Albumin (3.4-5.0) gm/dl Globulin (2.5-4.0) gm/dl Albumin/Globulin Ratio (0.9-2) CA 125 Antigen 25 (<35) U/ML Vit D 1,25-Dihyd Total 1,25 Dihydroxy Vit D2 1,25 Dihydroxy Vit D3 PG Care Time/CCT Total # of Minutes Spent Total Time Spent with Patient: Total time spent is greater than 50% in coordination of care (as documented) at patient's floor/unit and/or counseling patient:
[2018-12-17] MEDS: MoRPHine SULFATE 4 MG/ML 1 ML CARP\\VIAL IV PRN ×3 (01:35→08:50)
[2018-12-17] MEDS: LEVOTHYROXINE SODIUM 112 MCG TABLET PO SCH (05:41)
[2018-12-17 06:16] LABS: Hematocrit (blood only) 27.4 % (37-47); Hemoglobin 9.3 g/dL (12.0-16.0); Mean Corpuscular Hgb Conc 33.9 g/dL (32-36); Mean Corpuscular Volume 92.9 fL (80-100); Mean Platelet Volume 9.9 fL (7.4-10.4); Platelet Count 125 K/uL (130-400); RDW Coefficient of Variation 17.2 % (11.5-14.5); RDW Standard Deviation 57.8 fL (36.4-46.3); Red Blood Count 2.95 M/uL (4.2-5.4); White Blood Count 4.03 K/uL (4.8-10.8)
[2018-12-17 06:56] LABS: BUN Creatinine Ratio 8.4 (10-20); Creatinine Clr Calc Pharmacy 72.4 ml/min; Est GFR (African American) 75.4; Est GFR (Non-African American) 65.1; Magnesium 1.7 mg/dl (1.8-2.4); Potassium 3.5 mmol/L (3.5-5.1)
[2018-12-17 07:07] LABS: Albumin Globulin Ratio 0.9 (0.9-2); Bilirubin,Total 0.8 mg/dl (0.2-1); Globulin 3.5 gm/dl (2.5-4.0); Total Protein 6.5 gm/dl (6.4-8.2)
[2018-12-17 08:23] LABS: Hepatitis B Surface Antigen Neg (Neg)
[2018-12-17] MEDS ORDERED: LEVOTHYROXINE SODIUM 25 MCG TABLET PO ONE (08:25)
[2018-12-17] MEDS ORDERED: MAGNESIUM SULFATE / D5W 1 GM/100 ML BAG IV ONE (08:45)
[2018-12-17 08:51] LABS: Hepatitis C IgG 13Yrs+Old_Rflx Neg (Neg)
[2018-12-17] MEDS: ATORVASTATIN 10 MG TAB PO SCH (08:59)
[2018-12-17] MEDS: CITALOPRAM 40 MG TAB PO SCH (09:00)
[2018-12-17] MEDS: DOCUSATE SODIUM/SENNA 50/8.6MG TAB PO SCH ×2 (09:01→21:02)
[2018-12-17] MEDS: INSULIN ASPART 100 UNITS/ML 3 ML PEN SC SCH ×4 (09:04→21:44)
[2018-12-17] MEDS ORDERED: OXYCODONE HCL IR 5 MG TAB (IMMEDIATE RELEASE) PO PRN ×5 (09:38→16:46)
[2018-12-17] MEDS ORDERED: predniSONE 50 MG TAB PO ONE (09:45)
[2018-12-17 10:13] LABS: Immunoglobulin M 96.9 mg/dl (40-230)
--- NOTE | 2018-12-17 10:26 | Progress Note ---
DATE: 12/17/2018 DIAGNOSES: 1. Hepatosplenomegaly. 2. Left upper quadrant abdominal pain. 3. Elevated liver transaminases. 4. Hypoalbuminemia. 5. Mild pancytopenia. SUBJECTIVE: The patient was seen at chair side today. She is tolerating a regular diet at this point. Liver biopsy was performed yesterday with pathology pending. Viral titers of various organisms were checked yesterday. These are all pending at time of dictation. The patient has unexplained cough and will undergo CT scan of the chest later on today to rule out sarcoidosis. Apparently, the patient has had a history of pulmonary granulomatosis. She continues to have left upper quadrant tenderness. I have suggested a short burst of prednisone. No fever or chills are reported. Nursing reports no overnight difficulties otherwise. OBJECTIVE: GENERAL: A very pleasant 53-year-old Muslim woman, in no acute distress. VITAL SIGNS: Temperature 36.9, pulse 69, respiratory rate 18, blood pressure 123/73. SKIN: Without rash or lesion. HEENT: Oral mucosa without erythema or ulceration. HEART: Regular rate and rhythm. LUNGS: Clear to auscultation bilaterally. ABDOMEN: Soft. Left upper quadrant tenderness remains on gentle palpation. EXTREMITIES: No clubbing, cyanosis or edema. NEUROLOGICAL: Grossly intact. LABORATORY DATA: WBC count 4030, hemoglobin 9.3, platelet count 125,000. Sodium 137, potassium 3.5, chloride 100, carbon dioxide 30, BUN 8, creatinine 0.99. AST remains mildly elevated at 66, ALT 77, albumin 3. TSH is markedly elevated at 22.9. IMPRESSION: 1. Left upper quadrant abdominal pain. 2. Hepatosplenomegaly. 3. Elevated liver transaminases. 4. Hypoalbuminemia. 5. Mild pancytopenia. PLAN: The patient's TRAFFIC CONTROLLER CABLE was at bedside this morning. Infectious workup underway thus far negative. Again, her symptoms do not appear to be leading towards underlying viral infection. Biopsy of the liver was performed and shouldl be revealing. For pain control, the patient was receiving low dose opioids. I have recommended a burst of oral prednisone starting 50 mg and wean 10 mg every 3-4 days moving forward. Conceivably if the patient continues to improve, she may be discharged in next 24 hours. I asked the physician flow coordinator to schedule her for a 3-4 week followup in my office. She has a mild pancytopenia, which may improve as her spleen shrinks. Appropriately a follow up with Gastroenterology will be arranged for as well. I have nothing further to add and will officially sign off today. Thank you again for allowing me to participate in this very pleasant lady's interesting case. HA
[2018-12-17] MEDS ORDERED: IOVERSOL 100ml IV PRN (10:56)
--- NOTE | 2018-12-17 11:10 | CT Scan Report ---
CT OF THE CHEST WITH IV CONTRAST CLINICAL HISTORY: Mediastinal lymphadenopathy COMPARISON STUDY: Chest x-ray dated 12/14/2018 TECHNIQUE: Following the IV administration of 93 mL of Optiray-320, CT of the thorax was performed f rom the thoracic inlet to the lung bases. Images are reviewed in the axial, sagittal, and coronal lissy louis. IV contrast was administered without complication. A dose lowering technique was utilized adher ing to the principles of ALARA. CT DOSE: 620.43 mGy.cm FINDINGS: Thyroid: Imaged portions of the thyroid gland are normal in appearance. Thoracic aorta: The thoracic aorta is normal in course and caliber, noting standard 3-vessel arch ravi marcia. No aneurysm or dissection is seen. Pulmonary vasculature: The pulmonary trunk is normal in caliber. There are no central filling defects identified to suggest pulmonary embolus. Note that this examination was not protocoled for the evalu ation of pulmonary emboli. HEART: The heart is normal in size and configuration, without pericardial effusion. Lungs and pleural spaces: There are small bilateral pleural effusions. There are lower lobe dependent airspace opacities, likely atelectatic. There are airspace opacities in the right middle lobe, also likely atelectatic. There are scattered calcified right lobe granulomas. Mediastinum: There are calcified right paratracheal lymph nodes, likely postinflammatory. Vianca: Hilar lymph nodes are the upper limits of normal in size. Axilla: There is no evidence of pathologic axillary lymphadenopathy Upper abdomen: There is hepatic steatosis. There is suspected splenomegaly Skeletal structures: There are no lytic or blastic osseous lesions. IMPRESSION: 1. Small bilateral pleural effusions 2. Right middle lobe and bilateral lower lobe airspace opacity statistically atelectatic 3. Old granulomatous changes 4. Hepatic steatosis Electronically signed by: Javi Gracia M.D. 12/17/2018 11:09 AM
--- NOTE | 2018-12-17 12:34 | Hospitalist Progress Note ---
Date of Service December 17, 2018 Assessment & Plan (1) Left sided abdominal pain: - Likely related to splenomegaly noted on CT A/P (significantly increased since October 2017). - Spleen US showed enlargement, trace perisplenic fluid but no evidence of infarct. - CT A/P showed hepatosplenomegaly, splenic infarct, enlarged uterus and left ovary. - CBC with anemia and leukopenia; peripheral smear is pending. - Porter test was negative; mononucleosis is unlikely etiology. - Consider sarcoidosis in setting of lung granulomas and chronic cough -- COMPA level was WNL, Vit D 1,25 pending. Has had chronic lung granulomas, unchanged compared to prior imaging. - CA-125, Lipase, ESR and CRP WNL. - Consulted heme/onc, appreciate input. Recommend follow up with Dr. Rowley in 3 weeks. - Bowel regimen to avoid abd pain induced by constipation. - Morphine IV prn pain (has been using frequently); will add Oxycodone 5-10 mg q6hr prn and encourage PO med use to prepare for discharge. - Start Prednisone 50 mg PO daily; will need 2 week taper (50 x 3-4 days, taper by 10 mg every 3-4 days per heme/onc recs) (2) Splenomegaly: - As noted above. (3) Lung granuloma: - Concern for sarcoidosis in setting of cough, splenomegaly. Calcium level is WNL. - COMPA level was WNL; Vit D 1,25 & TB Gold pending. - CT chest completed this morning -- no mediastinal lymphadenopathy noted, does have chronic lung granulomas that are unchanged compared to prior imaging. (4) Hepatic steatosis: - Noted on CT A/P with hepatomegaly. - Consulted GI, appreciate input. - S/p liver biopsy on 12/16, path pending. Will need to follow up as outpatient for results. (5) Abnormal LFTs: - Likely related to hepatic steatosis; LFTs are now improving. - Liver biopsy path pending. - CMV, Parvovirus and Hepatitis panel pending. Consider work up for PSC, PBC, Alpha-1 antitrypsin, Esequiel's disease as well. (6) Left ovarian cyst: - Left ovary is abnormally enlarged with several small cysts. - Will need outpatient gyne follow up. (7) Hypertension: - Holding home Lisinopril & Triamterene/HCTZ due to elevated Cr at admission. - BP has been stable without anti-hypertensive treatment. (8) HLD (hyperlipidemia): - Continue statin -- hold if LFTs trend up. (9) Hypothyroidism: - TSH was 22 -- will increase Synthroid to 125 mcg daily. - Will need outpatient TFT's in 4-6 weeks for re-evaluation. (10) Depression: - Continue Celexa as prescribed. (11) Diabetes: - Hgb A1C was 8.8. - Holding home Metformin. - SSI coverage as inpt. (12) Anemia: - Likely dilutional related to IV fluids. - Monitor CBC qAM. (13) DVT prophylaxis: - Holding heparin due to recent liver biopsy. Dispo: Med/surg; discharge likely on 12/18 pending pain control with PO narcotics/steroids. Will need f/u with heme/onc in 3 weeks and f/u with GI in 7- 10 days to discuss liver biopsy results/further evaluation. Subjective Pt. has ongoing left sided abd pain today, has been requiring Morphine IV every 3-4 hours. She has some SOB with exertion, very minimal. Denies chest pain, N/V, constipation. Will start steroids and encourage her to use PO narcotics to prepare for discharge. Review of Systems Review of Systems: All systems reviewed & are unremarkable except as noted in HPI & below Constitutional: no fever, no chills, no fatigue, no weakness and no anorexia Respiratory: no cough, no dyspnea, no dyspnea on exertion and no wheezing Cardiovascular: no chest pain, no palpitations and no edema Gastrointestinal: + abdominal pain; no nausea, no vomiting, no constipation and no diarrhea/loose stools Genitourinary: no difficulty urinating Musculoskeletal: no back pain and no joint pain Integumentary: no non-healing lesions Physical Exam Physical Exam: General: Resting comfortably HEENT: NC/AT; PERRLA with EOMI; [place] conjunctiva, MMM. No erythema of posterior pharynx Neck: Supple and nontender Cardiac: RRR Lungs: CTA bilaterally Abdomen: Bowel normoactive X 4; TTP over LUQ with splenomegaly. Extremities: Warm. No edema present Neuro: No focal weakness Skin: No rash Results & Data Vital Signs (Past 12 Hours) Vital Signs Temp Pulse Resp BP Pulse Ox 12/17/18 07:27 36.9 C 69 18 123/73 12/17/18 03:48 36.9 C 67 18 124/74 91 Laboratory Results 12/17/18 12/17/18 12/17/18 Range/Units 12:08 08:50 08:11 WBC (4.8-10.8) K/uL RBC (4.2-5.4) M/uL Hgb (12.0-16.0) g/dL Hct (37-47) % MCV (80-100) fL MCH (25-34) pg MCHC (32-36) g/dL RDW Std Deviation (36.4-46.3) fL RDW Coeff of Imelda (11.5-14.5) % Plt Count (130-400) K/uL MPV (7.4-10.4) fL Sodium (136-145) mmol/L Potassium (3.5-5.1) mmol/L Chloride (98-107) mmol/L Carbon Dioxide (21-32) mmol/L Anion Gap (3-11) BUN (7-18) mg/dl Creatinine (0.6-1.2) mg/dl Est Cr Clr Drug Dosing ml/min Est GFR ( Amer) Est GFR (Non-Af Amer) BUN/Creatinine Ratio (10-20) Glucose (70-99) mg/dl POC Glucose 188 H 154 H (70-99) Calcium (8.5-10.1) mg/dl Magnesium (1.8-2.4) mg/dl Total Bilirubin (0.2-1) mg/dl AST (15-37) U/L ALT (12-78) U/L Alkaline Phosphatase (45-117) U/L Total Protein (6.4-8.2) gm/dl Albumin (3.4-5.0) gm/dl Globulin (2.5-4.0) gm/dl Albumin/Globulin Ratio (0.9-2) Angiotensin Convert Enz (9-67) U/L TSH (0.300-4.500) uIu/ml IgG (700-1600) mg/dl IgA (70-400) mg/dl IgM (40-230) mg/dl CMV IgG Ab CMV IgM Ab Hepatitis A IgM Ab Hep Bs Antigen (Neg) Hep B Core IgM Ab Hepatitis C Antibody (Neg) Parvovirus IgG Ab Index Parvovirus IgM Ab Index TB Test (QFT) Gold Plus Pending TB Test (QFT) Nil Pending TB Test Mitogen - Nil Pending TB Test Ag - Nil 1 Pending TB Test Ag - Nil 2 Pending 12/17/18 12/17/18 12/17/18 Range/Units 05:40 05:40 05:40 WBC 4.03 L (4.8-10.8) K/uL RBC 2.95 L (4.2-5.4) M/uL Hgb 9.3 L (12.0-16.0) g/dL Hct 27.4 L (37-47) % MCV 92.9 (80-100) fL MCH 31.5 (25-34) pg MCHC 33.9 (32-36) g/dL RDW Std Deviation 57.8 H (36.4-46.3) fL RDW Coeff of Imelda 17.2 H (11.5-14.5) % Plt Count 125 L (130-400) K/uL MPV 9.9 (7.4-10.4) fL Sodium 137 (136-145) mmol/L Potassium 3.5 (3.5-5.1) mmol/L Chloride 100 (98-107) mmol/L Carbon Dioxide 30 (21-32) mmol/L Anion Gap 7.0 (3-11) BUN 8 (7-18) mg/dl Creatinine 0.99 (0.6-1.2) mg/dl Est Cr Clr Drug Dosing 72.4 ml/min Est GFR ( Amer) 75.4 Est GFR (Non-Af Amer) 65.1 BUN/Creatinine Ratio 8.4 L (10-20) Glucose 149 H (70-99) mg/dl POC Glucose (70-99) Calcium 8.0 L (8.5-10.1) mg/dl Magnesium 1.7 L (1.8-2.4) mg/dl Total Bilirubin 0.8 (0.2-1) mg/dl AST 66 H (15-37) U/L ALT 77 (12-78) U/L Alkaline Phosphatase 120 H (45-117) U/L Total Protein 6.5 (6.4-8.2) gm/dl Albumin 3.0 L (3.4-5.0) gm/dl Globulin 3.5 (2.5-4.0) gm/dl Albumin/Globulin Ratio 0.9 (0.9-2) Angiotensin Convert Enz (9-67) U/L TSH 22.900 H (0.300-4.500) uIu/ml IgG 1040.0 (700-1600) mg/dl IgA 197.0 (70-400) mg/dl IgM 96.9 (40-230) mg/dl CMV IgG Ab CMV IgM Ab Hepatitis A IgM Ab Hep Bs Antigen (Neg) Hep B Core IgM Ab Hepatitis C Antibody (Neg) Parvovirus IgG Ab Index Parvovirus IgM Ab Index TB Test (QFT) Gold Plus TB Test (QFT) Nil TB Test Mitogen - Nil TB Test Ag - Nil 1 TB Test Ag - Nil 2 12/17/18 12/17/18 12/16/18 Range/Units 05:40 05:40 20:50 WBC (4.8-10.8) K/uL RBC (4.2-5.4) M/uL Hgb (12.0-16.0) g/dL Hct (37-47) % MCV (80-100) fL MCH (25-34) pg MCHC (32-36) g/dL RDW Std Deviation (36.4-46.3) fL RDW Coeff of Imelda (11.5-14.5) % Plt Count (130-400) K/uL MPV (7.4-10.4) fL Sodium (136-145) mmol/L Potassium (3.5-5.1) mmol/L Chloride (98-107) mmol/L Carbon Dioxide (21-32) mmol/L Anion Gap (3-11) BUN (7-18) mg/dl Creatinine (0.6-1.2) mg/dl Est Cr Clr Drug Dosing ml/min Est GFR ( Amer) Est GFR (Non-Af Amer) BUN/Creatinine Ratio (10-20) Glucose (70-99) mg/dl POC Glucose 214 H (70-99) Calcium (8.5-10.1) mg/dl Magnesium (1.8-2.4) mg/dl Total Bilirubin (0.2-1) mg/dl AST (15-37) U/L ALT (12-78) U/L Alkaline Phosphatase (45-117) U/L Total Protein (6.4-8.2) gm/dl Albumin (3.4-5.0) gm/dl Globulin (2.5-4.0) gm/dl Albumin/Globulin Ratio (0.9-2) Angiotensin Convert Enz (9-67) U/L TSH (0.300-4.500) uIu/ml IgG (700-1600) mg/dl IgA (70-400) mg/dl IgM (40-230) mg/dl CMV IgG Ab Pending CMV IgM Ab Pending Hepatitis A IgM Ab Pending Hep Bs Antigen Neg (Neg) Hep B Core IgM Ab Pending Hepatitis C Antibody Neg (Neg) Parvovirus IgG Ab Index Pending Parvovirus IgM Ab Index Pending TB Test (QFT) Gold Plus TB Test (QFT) Nil TB Test Mitogen - Nil TB Test Ag - Nil 1 TB Test Ag - Nil 2 12/16/18 12/16/18 12/15/18 Range/Units 16:46 12:12 13:20 WBC (4.8-10.8) K/uL RBC (4.2-5.4) M/uL Hgb (12.0-16.0) g/dL Hct (37-47) % MCV (80-100) fL MCH (25-34) pg MCHC (32-36) g/dL RDW Std Deviation (36.4-46.3) fL RDW Coeff of Imelda (11.5-14.5) % Plt Count (130-400) K/uL MPV (7.4-10.4) fL Sodium (136-145) mmol/L Potassium (3.5-5.1) mmol/L Chloride (98-107) mmol/L Carbon Dioxide (21-32) mmol/L Anion Gap (3-11) BUN (7-18) mg/dl Creatinine (0.6-1.2) mg/dl Est Cr Clr Drug Dosing ml/min Est GFR ( Amer) Est GFR (Non-Af Amer) BUN/Creatinine Ratio (10-20) Glucose (70-99) mg/dl POC Glucose 131 H 184 H (70-99) Calcium (8.5-10.1) mg/dl Magnesium (1.8-2.4) mg/dl Total Bilirubin (0.2-1) mg/dl AST (15-37) U/L ALT (12-78) U/L Alkaline Phosphatase (45-117) U/L Total Protein (6.4-8.2) gm/dl Albumin (3.4-5.0) gm/dl Globulin (2.5-4.0) gm/dl Albumin/Globulin Ratio (0.9-2) Angiotensin Convert Enz 21 (9-67) U/L TSH (0.300-4.500) uIu/ml IgG (700-1600) mg/dl IgA (70-400) mg/dl IgM (40-230) mg/dl CMV IgG Ab CMV IgM Ab Hepatitis A IgM Ab Hep Bs Antigen (Neg) Hep B Core IgM Ab Hepatitis C Antibody (Neg) Parvovirus IgG Ab Index Parvovirus IgM Ab Index TB Test (QFT) Gold Plus TB Test (QFT) Nil TB Test Mitogen - Nil TB Test Ag - Nil 1 TB Test Ag - Nil 2 PG Care Time/CCT Total # of Minutes Spent Total Time Spent with Patient: Total time spent is greater than 50% in coordination of care (as documented) at patient's floor/unit and/or counseling patient:
[2018-12-17] MEDS ORDERED: OXYCODONE HCL IR 5 MG TAB (IMMEDIATE RELEASE) ONE (16:49)
[2018-12-17] MEDS ORDERED: PHARMACY GLYCEMIC MGMT CONSULT PRN (21:51)
[2018-12-17] MEDS ORDERED: INSULIN HUMAN NPH SC STA (21:52)
[2018-12-17] MEDS ORDERED: INSULIN HUMAN REGULAR PER UNIT 8 UNITS in SYRINGE 7.92 ML IV ONE (22:00)
[2018-12-18] MEDS ORDERED: INSULIN ASPART 100 UNITS/ML 3 ML PEN SC SCH (02:00)
[2018-12-18] MEDS ORDERED: LEVOTHYROXINE SODIUM 125 MCG TABLET PO SCH (06:30)
[2018-12-18] MEDS ORDERED: predniSONE 50 MG TAB PO SCH (09:00)
[2018-12-18] MEDS ORDERED: INSULIN HUMAN NPH SC SCH ×2 (09:00)
[2018-12-18] MEDS: INSULIN ASPART 100 UNITS/ML 3 ML PEN SC SCH ×2 (09:09→13:10)
[2018-12-18] MEDS: ATORVASTATIN 10 MG TAB PO SCH (10:03)
[2018-12-18] MEDS: DOCUSATE SODIUM/SENNA 50/8.6MG TAB PO SCH (10:03)
[2018-12-18] MEDS: CITALOPRAM 40 MG TAB PO SCH (10:03)
--- NOTE | 2018-12-18 14:37 | Pharmacy Report ---
Pharmacy Glycemic Short Note 2 - Date of Service December 18, 2018 - Glycemic Short BSG Results (Last 24 hours): 12/17/18 12/17/18 12/17/18 17:14 21:16 21:18 POC Glucose 232 H 346 H* 385 H* 12/18/18 12/18/18 12/18/18 02:05 08:13 12:33 POC Glucose 232 H 146 H 199 H OUTPATIENT ANTIDIABETIC REGIMEN: * Metformin 1,000mg PO QAM * A1c = 8.8% on 12/15/18 ASSESSMENT: * 53yo T2DM female with suboptimal outpaitent control per A1c. Goal A1c likely ~ 7% based on age/comorbidities * Pt initiated on prednisone taper for splenomegaly. Pt started on prednisone taper (Prednisone 50 mg PO daily; will need 2 week taper (50 x 3-4 days, taper by 10 mg every 3-4 days per heme/onc recs)) * NPH insulin is used to counteract the hyperglycemic effect of prednisone. The rationale for this approach is that the pharmacodynamics profile of NPH, with a peak effect of 4-8hrs and duration of action of 12-16hrs, mirrors the pharmacodynamics of prednisone. NPH should be dosed at the same time that prednisone is given * The dose of NPH given is dependent on the steroid dose given * For doses of prednisone 40mg/day or above --> NPH dose should be 0.4 units/kg * Often will use Adjusted Body weight dosing when BMI >35 * NPH dosing above is given in addition to patients basal insulin needs (will give 0.2 units kg NPH for baseline needs + 0.4 units/kg for prednisone for a total dose of 0.6 units/kg adj BW) * Typically, patients will also need rapid-acting insulin with meals * PLAN FOR INPATIENT GLYCEMIC CONTROL: * Hold outpatient oral diabetes medications * Basal insulin * NPH 42 units SQ daily with Prednisone * Bolus insulin * NovoLog per scale ACHS or Q6hrs while NPO * Goal Range: Low 100 mg/dL - High 140 mg/dL * Correction Factor: 20 mg/dL/unit * Nutritional / Prandial insulin per carb ratio of 1 unit per 7 grams CHO consumed PLAN FOR DISCHARGE: * Pt may require a course of NPH while on prednisone taper. * Pt may also need another agent at discharge to get A1c to goal. Agent TBD based on insurance and patient specific factors.
--- NOTE | 2018-12-18 15:20 | Discharge Summary ---
Date of Service December 18, 2018 Admission HPI Per Admitting Provider 53-year-old female states that she has had left upper quadrant regional pain for about two months now. No known acute injury, infection, or particular source around that time. She denies any previous history of the same. She says over this time it is been progressively worsening such that it feels like there is a "hard ball in there". She ended up going to an urgent care about a week ago, apparently was diagnosed with pneumonia, and was placed on azithromycin [of note, the ED records states that she was given Keflex. On further discussion, it seems much more likely it was a azithromycin based on the dosing she was taking]. She does note that she has had during that time a bit of a dry cough but no known fevers. She has noted occasional nausea without any vomiting. She did develop some loose non-bloody stools after starting the antibiotic, something she says happens to her frequently. She also notes increased fatigue during the past couple of weeks. At present, she denies any chest pain, shortn ess of breath, abdominal pain outside of a focal area in her high left upper quadrant, focal weakness, or other acute concerns. - Past medical history includes hypertension, diabetes, hypothyroidism, anxiety, depression. - Past surgical history includes cholecystectomy and carpal tunnel release. - Social history includes denying tobacco and alcohol use. Lives at home with family. [facility] in an [facility]. Principal Diagnosis Splenomegaly Discharge Exam Constitutional WD/WN, vitals as above Eyes PERRL, conjunctivae normal, anicteric sclerae ENMT external ear and nose normal, oropharynx normal Neck trachea midline, no thyromegaly Respiratory normal respiratory effort, lungs clear to auscultation Cardiovascular RRR, no murmur, no edema Gastrointestinal (Abdomen) Inspection/Auscultation: abdomen normal to inspection and normal bowel sounds; abdomen not distended Percussion/Palpation: abdomen soft and + hepatosplenomegaly; abdomen nontender Musculoskeletal no cyanosis or clubbing, extremities motor strength 5/5 Skin no rashes, warm and dry Neurologic patellar DTR's 2+ bilat, sensation intact and PERRL, EOMI, accommodation nl, no face palsy, no dysarthria Psychiatric A+Ox3, euthymic affect Lymphatic no cervical or axillary lymphadenopathy Discharge Data Allergies Allergy/AdvReac Type Severity Reaction Status Date / Time No Known Allergies Allergy Verified 12/14/18 21:32 Consultations 12/15/18 10:24 Consult Hematology Routine 12/16/18 09:11 Consult Gastroenterology Routine Ordered Studies 12/14/18 19:35 CT abd pelvis wo con Stat 12/14/18 22:19 US abdomen limited Stat 12/16/18 09:10 CT abd pelvis oral and IV con Urgent 12/16/18 09:25 US biopsy liver Routine 12/16/18 14:17 US guide needle placement Routine 12/17/18 08:51 CT chest w con Routine Hospital Course (1) Left sided abdominal pain: - Likely related to splenomegaly noted on CT A/P (significantly increased since October 2017). - Spleen US showed enlargement, trace perisplenic fluid but no evidence of infarct. - CT A/P showed hepatosplenomegaly, splenic infarct, enlarged uterus and left ovary. - CBC with anemia and leukopenia - Hettinger test was negative; mononucleosis is unlikely etiology. - Consider sarcoidosis in setting of lung granulomas and chronic cough -- COMPA level was WNL, Vit D 1,25 pending. Has had chronic lung granulomas, unchanged compared to prior imaging. - CA-125, Lipase, ESR and CRP WNL. - Consulted heme/onc, appreciate input. Recommend follow up with Dr. Rowley in 3 weeks. pain decreased on Prednisone, will prescribe Oxycodone PRN, on the day of discharge she had not required any pain medication - Start Prednisone 50 mg PO daily; will need 2 week taper (50 x 3-4 days, taper by 10 mg every 3-4 days per heme/onc recs) (2) Splenomegaly: - As noted above. (3) Lung granuloma: - Concern for sarcoidosis in setting of cough, splenomegaly. Calcium level is WNL. - COMPA level was WNL; Vit D 1,25 & TB Gold pending. - CT chest completed this morning -- no mediastinal lymphadenopathy noted, does have chronic lung granulomas that are unchanged compared to prior imaging. (4) Hepatic steatosis: - Noted on CT A/P with hepatomegaly. - Consulted GI, appreciate input. - S/p liver biopsy on 12/16, path pending follow up with [facility] in 7-10 days for results and recommendations going forward (5) Abnormal LFTs: - Likely related to hepatic steatosis; LFTs improving. - Liver biopsy path pending. - CMV, Parvovirus and Hepatitis panel pending. Consider work up for PSC, PBC, Alpha-1 antitrypsin, Esequiel's disease as well. (6) Left ovarian cyst: - Left ovary is abnormally enlarged with several small cysts. - Will need outpatient baby nurse follow up for pelvic US discussed the need for follow up with patient and , instructions provided (7) Hypertension: - Holding home Lisinopril & Triamterene/HCTZ due to elevated Cr at admission. - BP has been stable without anti-hypertensive treatment. (8) HLD (hyperlipidemia): - Continue statin -- hold if LFTs trend up. (9) Hypothyroidism: - TSH was 22 -- will increase Synthroid to 125 mcg daily. - Will need outpatient TFT's in 4-6 weeks for re-evaluation. (10) Depression: - Continue Celexa as prescribed. (11) Diabetes: - Hgb A1C was 8.8. - discontinue Metformin due to contraindication with liver disease - SSI coverage as inpt. will start on Amaryl on discharge for glucose control follow up with PCP (12) Anemia: - Likely dilutional related to IV fluids. - Hb stable (13) DVT prophylaxis: - Holding heparin due to recent liver biopsy. Total Time Total Time Spent Total Time Spent (In Minutes): 39 minutes Total Time Includes: Examination of the Patient, Discharge Planning, Medication Reconciliation and Other (long discussion with patient and her ) Discharge Plan Discharge Items Patient Disposition: Home - Self-Care Reason For Visit: SPLENOMEGALY Discharge Diagnosis: Splenomegaly (enlarged spleen) Hepatomegaly (enlarged liver) Condition: Good Discharge Goals: Decrease discomfort and Diagnostic testing Specific Goals: follow up with GI and Hem/Onc for test results Activity: Resume your previous activity Non-emergency contact: Primary Care Provider and Lace Winder Call non-emergency contact if: you have any medication questions, your symptoms worsen, your pain is not controlled and you have a fever Follow-up/Referrals: Gregory Sargent MD [Primary Care Provider] - Diet: Carb Consistent or DM2 Addtl Provider Instructions: Medications: - PREDNISONE: start at 40mg daily tomorrow, decrease by 10mg every three days until done, so 40mg x 3 days, 30mg x 3 days, 20mg x 3 days, 10mg x 3 days - OXYCODONE: only use as needed for abdominal pain - LEVOTHYROXINE: increased dose from 112mcg to 125mcg due to high TSH, see below - GLIMEPIRIDE: 2mg daily starting tomorrow, this replaces the Metformin Enlarged spleen and liver evaluated by Dr. Rowley with hematology and [facility], liver biopsy performed there is no evidence of thrombosis (clots) in surrounding veins unclear reason at this point, you need dedicated follow up with the above specialists, follow up on results of numerous tests done while here recommend follow up with [facility] in 7-10 days, call [phone] for appointment if you do not hear from them by Wednesday 12/20 recommend follow up with [address]. Rowley at the [facility] connected to the hospital, he would like to see you in 3 weeks, his number is [phone] hoping that Prednisone will decrease swelling in spleen and thus decrease pain, use the Oxycodone as needed Diabetes type II should stop the Metformin because technically it is contraindicated with liver disease there is no specific evidence of liver disease at this time, just that the liver is enlarged, but should hold for now just to be safe will start on Amaryl 2mg daily, new prescription sent you should follow low carbohydrate diet, especially while on the Prednisone avoid sweets, eat less or avoid breads, pastas, rice etc Left ovary enlarged, small cysts recommend follow up pelvic ultrasound and follow up with chemistry research assistant, this is not emergent, can happen in 4-6 weeks Prescriptions: New levothyroxine [Synthroid] 125 mcg Tablet 125 mcg PO DAILYBB 30 Days Qty: 30 RF: 1 oxycodone 5 mg Tablet 5 mg PO Q4H PRN (Reason: pain) 10 Days Qty: 15 RF: 0 prednisone 10 mg tablet 10 mg PO UD 12 Days Qty: 30 RF: 0 glimepiride [Amaryl] 2 mg tablet 2 mg PO DAILY Qty: 30 RF: 0 Continued triamterene-hydrochlorothiazid 75-50 mg Tablet 1 tab PO DAILY RF: 0 citalopram 40 mg Tablet 40 mg PO DAILY RF: 0 atorvastatin 10 mg Tablet 10 mg PO DAILY RF: 0 lisinopril 5 mg Tablet 5 mg PO DAILY RF: 0 Discontinued levothyroxine 112 mcg Tablet 112 mcg PO QAM RF: 0 metformin 1,000 mg Tablet 1,000 mg PO QAM RF: 0 cephalexin 500 mg Tablet 500 mg PO QID RF: 0 Stand-Alone Forms: My [employer], Opioid Pain Management Humza/Other Patient Handouts: A1C, Blood Sugar Manage Exercise, Diabetes Exercise Plan, Diabetes Meal Planning Discharge Orders: Discharge Order (Routine); Ordered 12/18/18 Ordered By: Bo Dan Admission Data Admit Date/Time: 12/14/18 22:39 Attending Provider: Bo Dan Admit Provider: Yogi Li Primary Care Provider: Gregory Sargent Other Providers: Alex Rowley V ; Jess Green Service: Medical Other Interventions: Discharge Summary Assessment (RN) Last Done: 12/18/18 14:02 DC Date/Time DO NOT enter until pt leaves facility: 12/18/18 15:36
[2018-12-19 12:32] LABS: Vitamin D3,1,25 30 pg/mL
[2018-12-20 11:43] LABS: Quantiferon Mitogen-NIL >10.00 IU/ML; Quantiferon NIL 0.12 IU/ML; Quantiferon TB Gold Plus NEGATIVE (NEGATIVE); Quantiferon TB1-NIL 0.01 IU/ML
[2018-12-21 23:15] LABS: Parvovirus IgM 0.2 (<0.9)
== END 2018-12-18 15:36 | disposition home or self-care (01) | DRG 442 ==
LOC: ED 19:12 → SUATTDRO 22:39 → 3W 22:39
DX: E88.09 Other disorders of plasma-protein metabolism, not elsewhere classified; E78.5 Hyperlipidemia, unspecified; Z79.84 Long term (current) use of oral hypoglycemic drugs; E03.9 Hypothyroidism, unspecified; K76.0 Fatty (change of) liver, not elsewhere classified; R16.2 Hepatomegaly with splenomegaly, not elsewhere classified; J84.10 Pulmonary fibrosis, unspecified; F41.8 Other specified anxiety disorders; D61.818 Other pancytopenia; E11.9 Type 2 diabetes mellitus without complications; I10 Essential (primary) hypertension; Z79.899 Other long term (current) drug therapy; E83.42 Hypomagnesemia